=== PATIENT | female | born 1960 | race Hispanic/Latino ===

== ENCOUNTER 2017-03-15 04:34 | Emergency (ER) | payer MEDICAID, OTHER ==
[~2017-03-15 04:34] MED LIST: ASPI-1197 PO; CITA10TA13 PO; GLIM4TAB3 PO; IBUP-2353 PO; LISI2.5T2 PO; METF10004 PO
[2017-03-15] MEDS ORDERED: PROCHLORPERAZINE EDISYLATE 10 MG/2 ML VIAL ONE (05:07)
[2017-03-15] MEDS ORDERED: SODIUM CHLORIDE 0.9% 250 ML IV ONE (05:07)
[2017-03-15 05:22] LABS: CARBON DIOXIDE 30 mmol/L (21-32); CHLORIDE 101 mmol/L (101-111); CREATININE 0.8 mg/dL (0.5-1.5); GLOMERULAR FILTR. RATE CALC 79 mL/min (>60); GLUCOSE,RANDOM 280 mg/dL (70-105); POTASSIUM 4.3 mmol/L (3.5-5.1); SODIUM SERUM 137 mmol/L (136-145); UREA NITROGEN, BLOOD 15 mg/dL (7-18)
[2017-03-15 05:24] LABS: BASOPHILS % (AUTO) 1.4 % (0.0-5.0); EOSINOPHILS % (AUTO) 5.5 % (0.0-8.0); HEMATOCRIT 36.5 % (36-48); LYMPHOCYTES % (AUTO) 35.2 % (21.0-51.0); MEAN CORPUSCULAR HEMOGLOBIN 27.8 pg (27.0-33.0); MEAN CORPUSCULAR HGB CONC 33.8 g/dL (32.0-36.0); MEAN CORPUSCULAR VOLUME 82.2 fL (79-99); MONOCYTES % (AUTO) 7.6 % (3.0-13.0); NEUTROPHILS % (AUTO) 50.3 % (40.0-77.0); PLATELET COUNT (AUTO) 317 K/uL (130-400); RED BLOOD CELL COUNT(AUTO) 4.44 MIL/uL (4.00-5.50); RED CELL DISTRIBUTION WIDTH 13.3 % (11.0-15.5); WHITE BLOOD COUNT (AUTO) 9.4 K/uL (4.8-10.8)
[2017-03-15 05:26] LABS: ALANINE AMINOTRANSFERASE 36 U/L (12-78); ASPARTATE AMINOTRANSFERASE 34 U/L (10-37); BILIRUBIN,DIRECT < 0.1 mg/dL (0.0-0.3); BILIRUBIN,TOTAL 0.6 mg/dL (0.2-1.0); CREATINE KINASE, TOTAL 148 U/L (21-232); LIPASE 167 U/L (114-286); TOTAL PROTEIN, SERUM 7.4 g/dL (6.0-8.3)
[2017-03-15 05:38] LABS: B-TYPE NATRIURETIC PEPTIDE 87 pg/mL (0-100)
[2017-03-15] MEDS ORDERED: KETOROLAC TROMETHAMINE 30MG/ML ONE (05:55)
[2017-03-15 06:06] LABS: APPEARANCE,URINE Cloudy (CLEAR); BILIRUBIN,URINE Negative (NEGATIVE); COLOR,URINE Yellow (YELLOW); GLUCOSE, URINE (UA) >=1000 mg/dL (NEGATIVE); KETONES,URINE Negative (NEGATIVE); LEUKOCYTE ESTERASE ,URINE Small (NEGATIVE); NITRATE,URINE Positive (NEGATIVE); OCCULT BLOOD,URINE Negative (NEGATIVE); PROTEIN,URINE POS 2+ (NEGATIVE)
[2017-03-15 06:12] LABS: BACTERIA,URINE Many /HPF (None Seen); MUCUS,URINE Many LPF (None Seen); RBC,URINE 0-1 /HPF (0-1); SQUAMOUS EPITHELIAL CELL,UR Moderate /LPF (0-2); WBC,URINE 26-50 /HPF (0-1)
== END 2017-03-15 08:39 | disposition home or self-care (01) ==
LOC: EDH 04:34
DX: R10.13 Epigastric pain (principal); R11.10 Vomiting, unspecified; I25.10 Atherosclerotic heart disease of native coronary artery without angina pectoris; E11.9 Type 2 diabetes mellitus without complications; E78.5 Hyperlipidemia, unspecified; I10 Essential (primary) hypertension; Z95.1 Presence of aortocoronary bypass graft; Z88.6 Allergy status to analgesic agent
CPT/HCPCS: 36415; 71045; 74176; 80048; 80076; 81001; 82550; 83690; 83880; 84484 ×2; 85025; 93005; 96361; 96374; 96375; 99285; J0780; J1885; J7030

== ENCOUNTER 2017-08-28 06:41 | Emergency (ER) | payer MEDICAID ==
[2017-08-28 07:03] LABS: APPEARANCE,URINE Clear (CLEAR); BILIRUBIN,URINE Negative (NEGATIVE); COLOR,URINE Yellow (YELLOW); GLUCOSE, URINE (UA) >=1000 mg/dL (NEGATIVE); KETONES,URINE Negative (NEGATIVE); LEUKOCYTE ESTERASE ,URINE Negative (NEGATIVE); NITRATE,URINE Positive (NEGATIVE); OCCULT BLOOD,URINE Negative (NEGATIVE); PROTEIN,URINE POS 2+ (NEGATIVE)
[2017-08-28] MEDS ORDERED: PROMETHAZINE HCL 25 MG/ML 1ML AMPULE IM ONE (07:21)
[2017-08-28 07:35] LABS: RBC,URINE 0-1 /HPF (0-1)
[2017-08-28 07:36] LABS: BACTERIA,URINE Moderate /HPF (None Seen); SQUAMOUS EPITHELIAL CELL,UR Few /HPF (0-2)
[2017-08-28 08:14] LABS: CREATININE 0.8 mg/dL (0.5-1.5); POTASSIUM 4.2 mmol/L (3.5-5.1)
[2017-08-28 08:23] LABS: ALBUMIN 3.4 g/dL (3.5-5.0); BASOPHILS % (AUTO) 0.6 % (0.0-5.0); BILIRUBIN,TOTAL 0.7 mg/dL (0.2-1.0); EOSINOPHILS % (AUTO) 3.9 % (0.0-8.0); HEMATOCRIT 38.9 % (36-48); LYMPHOCYTES % (AUTO) 28.5 % (21.0-51.0); MEAN CORPUSCULAR HEMOGLOBIN 27.8 pg (27.0-33.0); MEAN CORPUSCULAR HGB CONC 33.6 g/dL (32.0-36.0); MEAN CORPUSCULAR VOLUME 82.8 fL (79-99); MONOCYTES % (AUTO) 6.5 % (3.0-13.0); NEUTROPHILS % (AUTO) 60.5 % (40.0-77.0); PLATELET COUNT (AUTO) 266 K/uL (130-400); TOTAL PROTEIN, SERUM 7.6 g/dL (6.0-8.3); WHITE BLOOD COUNT (AUTO) 11.9 K/uL (4.8-10.8)
== END 2017-08-28 09:01 | disposition home or self-care (01) ==
LOC: EDH 06:41
DX: A09 Infectious gastroenteritis and colitis, unspecified (principal); E11.65 Type 2 diabetes mellitus with hyperglycemia; G47.00 Insomnia, unspecified; I25.10 Atherosclerotic heart disease of native coronary artery without angina pectoris; E78.5 Hyperlipidemia, unspecified; I10 Essential (primary) hypertension; Z95.1 Presence of aortocoronary bypass graft; Z90.49 Acquired absence of other specified parts of digestive tract; Z88.8 Allergy status to other drugs, medicaments and biological substances
CPT/HCPCS: 36415; 80053; 81001; 83690; 85025; 87088; 87186; 93005; 96372; 99285; J2550

== ENCOUNTER 2018-10-28 23:12 | Inpatient (IN) | payer MEDICAID | END 2018-10-31 12:18 | disposition home or self-care (01) | LOC: EDH 23:12 → EDHIP 23:13 → 4BH 10-29 05:38 | DX: I21.A1 Myocardial infarction type 2 (principal); J45.901 Unspecified asthma with (acute) exacerbation; Z95.1 Presence of aortocoronary bypass graft; J20.9 Acute bronchitis, unspecified; I10 Essential (primary) hypertension; E78.5 Hyperlipidemia, unspecified; R79.89 Other specified abnormal findings of blood chemistry; E04.1 Nontoxic single thyroid nodule ==

== ENCOUNTER 2020-09-08 18:53 | Emergency (ER) | payer MEDICAID ==
[~2020-09-08] VITALS: Ht 152.4 cm; Wt 104.3 kg
[~2020-09-08 18:53] MED LIST changes: +ASPI-1005 PO; -ASPI-1197 PO; +ATOR40TA69 PO; -CITA10TA13 PO; +CITA20TA17 PO; -GLIM4TAB3 PO; -IBUP-2353 PO; -LISI2.5T2 PO; +METF-446 PO; -METF10004 PO
[2020-09-08] MEDS ORDERED: HYDR-3421 PO (20:47)
[2020-09-08 20:50] VITALS: BP 157/72
[2020-09-08] MEDS ORDERED: HYDROXYZINE 25 MG TABLET PO ONE ×2 (21:00)
[2020-09-08] MEDS ORDERED: IBUPROFEN 600 MG TABLET PO ONE (21:00)
== END 2020-09-08 21:06 | disposition home or self-care (01) ==
LOC: EDH 18:53
DX: F41.9 Anxiety disorder, unspecified (principal); I10 Essential (primary) hypertension; M19.90 Unspecified osteoarthritis, unspecified site; Z76.0 Encounter for issue of repeat prescription; Z79.84 Long term (current) use of oral hypoglycemic drugs; Z79.82 Long term (current) use of aspirin; Z79.899 Other long term (current) drug therapy; Z88.6 Allergy status to analgesic agent

== ENCOUNTER 2021-08-29 09:53 | Inpatient (IN) | payer MEDICAID ==
[~2021-08-29] VITALS: Ht 157.5 cm; Wt 106.0 kg
[~2021-08-29 09:53] MED LIST changes: +HYDR-3421 PO
[2021-08-29 10:15] LABS: BASOPHILS % (AUTO) 0.4 % (0.0-5.0); EOSINOPHILS % (AUTO) 5.1 % (0.0-8.0); LYMPHOCYTES % (AUTO) 18.8 % (21.0-51.0); MEAN CORPUSCULAR HEMOGLOBIN 26.6 pg (27.0-33.0); MEAN CORPUSCULAR HGB CONC 31.5 g/dL (32.0-36.0); MEAN CORPUSCULAR VOLUME 84.6 fL (79-99); MONOCYTES % (AUTO) 11.9 % (3.0-13.0); NEUTROPHILS % (AUTO) 63.7 % (40.0-77.0); PLATELET COUNT (AUTO) 187 K/uL (130-400); RED BLOOD CELL COUNT(AUTO) 4.02 MIL/uL (4.00-5.50); RED CELL DISTRIBUTION WIDTH 15.4 % (11.0-15.5); WHITE BLOOD COUNT (AUTO) 7.4 K/uL (4.8-10.8)
[2021-08-29 10:30] LABS: POTASSIUM 3.8 mmol/L (3.5-5.1)
[2021-08-29] MEDS ORDERED: SOLU-MEDROL 125MG VIAL IVP ONE (10:30)
[2021-08-29] MEDS ORDERED: IPRATROPIUM/ALBUTEROL SULFATE 3 ML SOLUTION IH ONE (10:30)
[2021-08-29 10:35] LABS: ALBUMIN 2.9 g/dL (3.5-5.0); BILIRUBIN,TOTAL 0.6 mg/dL (0.2-1.0); TOTAL PROTEIN, SERUM 7.4 g/dL (6.0-8.3)
[2021-08-29 10:52] LABS: B-TYPE NATRIURETIC PEPTIDE 520 pg/mL (0-100)
[2021-08-29 10:58] LABS: APPEARANCE,URINE CLEAR (CLEAR); BILIRUBIN,URINE NEGATIVE (NEGATIVE); COLOR,URINE YELLOW (YELLOW); GLUCOSE, URINE (UA) NEGATIVE (NEGATIVE); KETONES,URINE NEGATIVE (NEGATIVE); LEUKOCYTE ESTERASE ,URINE NEGATIVE (NEGATIVE); NITRATE,URINE NEGATIVE (NEGATIVE); OCCULT BLOOD,URINE NEGATIVE (NEGATIVE); PH,URINE 5.5 (5.0-8.0); PROTEIN,URINE TRACE mg/dL (NEGATIVE)
[2021-08-29 11:02] LABS: BACTERIA,URINE Rare /HPF (None Seen); RBC,URINE 0-1 /HPF (0-1); SQUAMOUS EPITHELIAL CELL,UR Rare /HPF (0-2); WBC,URINE 0-1 /HPF (0-1)
[2021-08-29] MEDS ORDERED: FUROSEMIDE 20MG VIAL IV ONE (11:30)
[2021-08-29] MEDS ORDERED: ENOXAPARIN SODIUM 0.5 MG/KG EACH SQ SCH (12:00)
[2021-08-29] MEDS ORDERED: ONDANSETRON 4MG INJ IV PRN (12:00)
[2021-08-29] MEDS ORDERED: ACETAMINOPHEN 325 MG TAB PO PRN ×2 (12:00)
[2021-08-29] MEDS: NITROGLYCERIN 1GM OINT 1 INCH/1GM TD SCH ×2 (12:26→20:35)
[2021-08-29] MEDS: DOXYCYCLINE 100MG+NS 250ML 250 ML IV SCH (12:26)
[2021-08-29] MEDS: CEFTRIAXONE 1G VIAL IV SCH (12:26)
[2021-08-29] MEDS ORDERED: ENOXAPARIN SODIUM 60 MG/0.6 ML SQ SCH (12:30)
[2021-08-29] MEDS ORDERED: INSULIN HUMULIN R 100 UNIT/ML 3ML SQ SCH (16:30)
[2021-08-29] MEDS ORDERED: ASPIRIN 325MG TAB PO ONE (19:00)
[2021-08-29] MEDS ORDERED: CLOPIDOGREL 300MG TAB PO ONE (19:00)
[2021-08-29] MEDS ORDERED: METO-408 PO (20:05)
[2021-08-29] MEDS ORDERED: METF-446 PO (20:05)
[2021-08-29] MEDS ORDERED: CITA-106 PO (20:06)
[2021-08-29] MEDS ORDERED: SPIR25TA6 PO (20:07)
[2021-08-29] MEDS ORDERED: GLIM4TAB36 PO (20:08)
[2021-08-29] MEDS ORDERED: ASPI-1197 PO (20:08)
[2021-08-29] MEDS ORDERED: SITA100T12 PO (20:09)
[2021-08-29] MEDS ORDERED: LEVO500T90 PO (20:09)
[2021-08-29] MEDS ORDERED: ATOR-2 PO (20:10)
[2021-08-29] MEDS ORDERED: FURO40TA5 PO (20:11)
[2021-08-29] MEDS ORDERED: LOSA25TA41 PO (20:11)
[2021-08-29] MEDS ORDERED: ASPIRIN 325MG TAB ONE (20:26)
[2021-08-29] MEDS ORDERED: CLOPIDOGREL 300MG TAB ONE (20:26)
[2021-08-29] MEDS: FUROSEMIDE 40MG VIAL IVP SCH (20:35)
[2021-08-29] MEDS: CARVEDILOL 3.125 MG TABLET PO SCH (20:48)
[2021-08-29] MEDS: SOLU-MEDROL 40MG VIAL IVP SCH (20:48)
[2021-08-29] MEDS: INSULIN HUMULIN R 100 UNIT/ML 3ML SQ SCH (20:49)
[2021-08-29] MEDS ORDERED: INSULIN GLARGINE 100 UNITS/ML 10 ML VIAL SQ SCH (21:00)
[2021-08-29] MEDS: IPRATROPIUM/ALBUTEROL SULFATE 3 ML SOLUTION IH SCH (23:48)
[2021-08-30] MEDS: DOXYCYCLINE 100MG+NS 250ML 250 ML IV SCH ×3 (00:37→23:35)
[2021-08-30] MEDS: SOLU-MEDROL 40MG VIAL IVP SCH ×3 (04:45→20:49)
[2021-08-30] MEDS: NITROGLYCERIN 1GM OINT 1 INCH/1GM TD SCH ×3 (04:45→20:48)
[2021-08-30 06:18] LABS: BASOPHILS % (AUTO) 0.3 % (0.0-5.0); HEMATOCRIT 30.1 % (36-48); LYMPHOCYTES % (AUTO) 12.1 % (21.0-51.0); MEAN CORPUSCULAR HEMOGLOBIN 26.4 pg (27.0-33.0); MEAN CORPUSCULAR HGB CONC 32.2 g/dL (32.0-36.0); MONOCYTES % (AUTO) 5.4 % (3.0-13.0); NEUTROPHILS % (AUTO) 81.7 % (40.0-77.0); PLATELET COUNT (AUTO) 169 K/uL (130-400); RED BLOOD CELL COUNT(AUTO) 3.67 MIL/uL (4.00-5.50)
[2021-08-30] MEDS: IPRATROPIUM/ALBUTEROL SULFATE 3 ML SOLUTION IH SCH ×4 (06:20→23:41)
[2021-08-30 06:27] LABS: HEMOGLOBIN A1C 8.4 % (4.0-6.0)
[2021-08-30 06:53] LABS: % IRON SATURATION 29.8 % (22-44)
[2021-08-30 06:56] LABS: CREATININE 1.1 mg/dL (0.5-1.5); POTASSIUM 3.8 mmol/L (3.5-5.1); THYROID STIMULATING HORMONE 0.3 uIU/mL (0.36-3.74)
[2021-08-30] MEDS ORDERED: INSULIN HUMULIN R 100 UNIT/ML 3ML SQ SCH (07:30)
[2021-08-30] MEDS: INSULIN HUMULIN R 100 UNIT/ML 3ML SQ SCH ×6 (09:00→20:50)
[2021-08-30] MEDS: FOLIC ACID 5 MG/ML VIAL IV SCH (09:54)
[2021-08-30] MEDS: FUROSEMIDE 40MG VIAL IVP SCH ×2 (09:54→20:49)
[2021-08-30] MEDS: IRON SUCROSE COMPLEX 300 MG in 0.9% NACL 250ML 250 ML IV SCH (09:54)
[2021-08-30] MEDS: INSULIN GLARGINE 100 UNITS/ML 10 ML VIAL SQ SCH ×2 (09:55→20:51)
[2021-08-30] MEDS: CARVEDILOL 3.125 MG TABLET PO SCH ×2 (09:55→20:50)
[2021-08-30] MEDS: ASPIRIN 81MG CHEW TAB PO SCH (09:55)
[2021-08-30] MEDS: ENOXAPARIN SODIUM 40 MG/0.4 ML SYRINGE SQ SCH (09:55)
[2021-08-30] MEDS: CLOPIDOGREL 75MG TAB PO SCH (09:55)
[2021-08-30 12:00] VITALS: BP 155/55
[2021-08-30] MEDS: CEFTRIAXONE 1G VIAL IV SCH (13:35)
[2021-08-30] MEDS ORDERED: COMPOUND IV MISC 1 EACH IVSOLN MISC PRN (14:00)
[2021-08-30 16:00] VITALS: BP 142/70
[2021-08-30 20:45] VITALS: BP 140/108
[2021-08-30 23:47] VITALS: BP 161/63
[2021-08-31 03:22] LABS: BASOPHILS % (AUTO) 0.2 % (0.0-5.0); HEMATOCRIT 30.2 % (36-48); LYMPHOCYTES % (AUTO) 8.8 % (21.0-51.0); MEAN CORPUSCULAR HGB CONC 32.8 g/dL (32.0-36.0); MEAN CORPUSCULAR VOLUME 82.5 fL (79-99); MONOCYTES % (AUTO) 5.5 % (3.0-13.0); NEUTROPHILS % (AUTO) 84.4 % (40.0-77.0); PLATELET COUNT (AUTO) 226 K/uL (130-400); RED BLOOD CELL COUNT(AUTO) 3.66 MIL/uL (4.00-5.50); RED CELL DISTRIBUTION WIDTH 14.9 % (11.0-15.5)
[2021-08-31 03:50] LABS: POTASSIUM 4.1 mmol/L (3.5-5.1)
[2021-08-31 04:00] VITALS: BP 146/61
[2021-08-31] MEDS: NITROGLYCERIN 1GM OINT 1 INCH/1GM TD SCH (04:29)
[2021-08-31 04:34] LABS: B-TYPE NATRIURETIC PEPTIDE 384 pg/mL (0-100)
[2021-08-31 08:00] VITALS: BP 152/87
[2021-08-31] MEDS: SOLU-MEDROL 40MG VIAL IVP SCH ×3 (08:06→20:55)
[2021-08-31] MEDS: CLOPIDOGREL 75MG TAB PO SCH (08:07)
[2021-08-31] MEDS: ASPIRIN 81MG CHEW TAB PO SCH (08:07)
[2021-08-31] MEDS: CARVEDILOL 3.125 MG TABLET PO SCH (08:08)
[2021-08-31] MEDS: FUROSEMIDE 40MG VIAL IVP SCH (08:09)
[2021-08-31] MEDS: ENOXAPARIN SODIUM 40 MG/0.4 ML SYRINGE SQ SCH (08:09)
[2021-08-31] MEDS: INSULIN GLARGINE 100 UNITS/ML 10 ML VIAL SQ SCH ×2 (08:16→20:49)
[2021-08-31] MEDS: INSULIN HUMULIN R 100 UNIT/ML 3ML SQ SCH ×7 (08:16→20:53)
[2021-08-31] MEDS: CYANOCOBALAMIN (VITAMIN B-12) 1000 MCG/ML 1ML VIAL IM SCH (08:57)
[2021-08-31] MEDS: FOLIC ACID 5 MG/ML VIAL IV SCH (08:57)
[2021-08-31] MEDS: IRON SUCROSE COMPLEX 300 MG in 0.9% NACL 250ML 250 ML IV SCH (09:09)
[2021-08-31] MEDS ORDERED: ACETAZOLAMIDE SODIUM 500 MG VIAL IV SCH ×2 (10:30→21:00)
[2021-08-31] MEDS ORDERED: NIFEDIPINE ER 30 MG TAB PO SCH (10:30)
[2021-08-31] MEDS ORDERED: COMPOUND IV REFRIGERATED 1 EACH IVSOLN MISC PRN (11:00)
[2021-08-31] MEDS ORDERED: [UNRECOGNIZED DRUG - OTHER] IV SCH (11:00)
[2021-08-31] MEDS ORDERED: ACETAZOLAMIDE IV SCH (11:00)
[2021-08-31] MEDS: IPRATROPIUM/ALBUTEROL SULFATE 3 ML SOLUTION IH SCH ×3 (11:19→23:38)
[2021-08-31 11:40] VITALS: BP 152/60
[2021-08-31] MEDS: DOXYCYCLINE 100MG+NS 250ML 250 ML IV SCH ×2 (11:44→23:56)
[2021-08-31] MEDS: CEFTRIAXONE 1G VIAL IV SCH (11:54)
[2021-08-31 14:12] LABS: ABG BASE EXCESS 4.2 mmol/L (-2.0-3.0); ABG HCO3 30.3 mmol/L (21.0-28.0); ABG OXYGEN SATURATION 90.7 % (95.0-99.0); ABG PCO2 51 mmHg (32-45)
[2021-08-31 16:00] VITALS: BP 155/80
[2021-08-31 20:10] VITALS: BP 164/69
[2021-08-31] MEDS: CARVEDILOL 6.25 MG TABLET PO SCH (20:46)
[2021-08-31] MEDS: CITALOPRAM 20 MG TABLET PO SCH (20:46)
[2021-08-31] MEDS: FUROSEMIDE 20MG VIAL IV SCH (20:47)
[2021-08-31] MEDS: [UNRECOGNIZED DRUG - OTHER] IV SCH (20:55)
[2021-08-31] MEDS: ACETAZOLAMIDE IV SCH (20:55)
[2021-09-01] VITALS: BP 141/86
[2021-09-01 04:00] VITALS: BP 144/87
[2021-09-01 04:10] LABS: BASOPHILS % (AUTO) 0.3 % (0.0-5.0); HEMATOCRIT 35.2 % (36-48); LYMPHOCYTES % (AUTO) 9.6 % (21.0-51.0); MEAN CORPUSCULAR HEMOGLOBIN 26.3 pg (27.0-33.0); MEAN CORPUSCULAR HGB CONC 31.3 g/dL (32.0-36.0); MEAN CORPUSCULAR VOLUME 84.2 fL (79-99); MONOCYTES % (AUTO) 3.8 % (3.0-13.0); NEUTROPHILS % (AUTO) 84.9 % (40.0-77.0); NUCLEATED RED BLOOD CELLS 0.1 % (0.0-0.19); PLATELET COUNT (AUTO) 295 K/uL (130-400); RED BLOOD CELL COUNT(AUTO) 4.18 MIL/uL (4.00-5.50); RED CELL DISTRIBUTION WIDTH 15.3 % (11.0-15.5); WHITE BLOOD COUNT (AUTO) 17.6 K/uL (4.8-10.8)
[2021-09-01 04:24] LABS: CREATININE 0.9 mg/dL (0.5-1.5); POTASSIUM 4.2 mmol/L (3.5-5.1)
[2021-09-01 05:25] LABS: B-TYPE NATRIURETIC PEPTIDE 458 pg/mL (0-100)
[2021-09-01] MEDS: IPRATROPIUM/ALBUTEROL SULFATE 3 ML SOLUTION IH SCH ×2 (07:06→11:56)
[2021-09-01 08:00] VITALS: BP 164/78
[2021-09-01] MEDS: INSULIN HUMULIN R 100 UNIT/ML 3ML SQ SCH ×7 (08:01→21:39)
[2021-09-01] MEDS: INSULIN GLARGINE 100 UNITS/ML 10 ML VIAL SQ SCH ×2 (08:03→21:38)
[2021-09-01] MEDS ORDERED: LOSARTAN 25 MG TABLET PO SCH (09:00)
[2021-09-01] MEDS: FUROSEMIDE 20MG VIAL IV SCH ×2 (10:09→20:32)
[2021-09-01] MEDS: SOLU-MEDROL 40MG VIAL IVP SCH ×3 (10:10→20:33)
[2021-09-01] MEDS: ENOXAPARIN SODIUM 40 MG/0.4 ML SYRINGE SQ SCH (10:12)
[2021-09-01] MEDS: ASPIRIN 81MG CHEW TAB PO SCH (10:13)
[2021-09-01] MEDS: CLOPIDOGREL 75MG TAB PO SCH (10:13)
[2021-09-01] MEDS: CARVEDILOL 6.25 MG TABLET PO SCH ×2 (10:18→20:32)
[2021-09-01] MEDS: NIFEDIPINE ER 30 MG TAB PO SCH (10:19)
[2021-09-01] MEDS: ATORVASTATIN 40 MG TABLET PO SCH (10:20)
[2021-09-01] MEDS: SPIRONOLACTONE 25 MG TAB PO SCH (10:20)
[2021-09-01] MEDS: CYANOCOBALAMIN (VITAMIN B-12) 1000 MCG/ML 1ML VIAL IM SCH (10:35)
[2021-09-01] MEDS: IRON SUCROSE COMPLEX 300 MG in 0.9% NACL 250ML 250 ML IV SCH (10:36)
[2021-09-01] MEDS: ACETAZOLAMIDE IV SCH ×2 (10:36→21:00)
[2021-09-01] MEDS: FOLIC ACID 5 MG/ML VIAL IV SCH (10:36)
[2021-09-01] MEDS: [UNRECOGNIZED DRUG - OTHER] IV SCH ×2 (10:36→21:00)
[2021-09-01 12:00] VITALS: BP 142/71
[2021-09-01] MEDS: CEFTRIAXONE 1G VIAL IV SCH (14:14)
[2021-09-01] MEDS: DOXYCYCLINE 100MG+NS 250ML 250 ML IV SCH (15:17)
[2021-09-01 16:00] VITALS: BP 131/53
[2021-09-01] MEDS: LOSARTAN 25 MG TABLET PO SCH (16:53)
[2021-09-01] MEDS ORDERED: SODIUM CHLORIDE 3% FOR INHALATION 4 ML/AMP VIAL.NEB IH SCH (18:00)
[2021-09-01] MEDS ORDERED: SODIUM CHLORIDE 7% INHALATION 4 ML VIAL.NEB IH ONE ×2 (19:03→23:16)
[2021-09-01 20:00] VITALS: BP 138/50
[2021-09-01] MEDS: CITALOPRAM 20 MG TABLET PO SCH (20:32)
[2021-09-02] VITALS: BP 130/54
[2021-09-02] MEDS: DOXYCYCLINE 100MG+NS 250ML 250 ML IV SCH ×2 (00:35→11:06)
[2021-09-02 04:00] VITALS: BP 146/72
[2021-09-02 05:29] LABS: BASOPHILS % (AUTO) 0.2 % (0.0-5.0); HEMATOCRIT 36.9 % (36-48); LYMPHOCYTES % (AUTO) 10.7 % (21.0-51.0); MEAN CORPUSCULAR HGB CONC 32.2 g/dL (32.0-36.0); MEAN CORPUSCULAR VOLUME 83.9 fL (79-99); MONOCYTES % (AUTO) 5.5 % (3.0-13.0); NUCLEATED RED BLOOD CELLS 0.2 % (0.0-0.19); PLATELET COUNT (AUTO) 348 K/uL (130-400); RED CELL DISTRIBUTION WIDTH 15.1 % (11.0-15.5); WHITE BLOOD COUNT (AUTO) 21.2 K/uL (4.8-10.8)
[2021-09-02 05:53] LABS: CREATININE 0.9 mg/dL (0.5-1.5); MAGNESIUM 1.9 mg/dL (1.80-2.40); PHOSPHORUS 3.5 mg/dL (2.5-4.9)
[2021-09-02] MEDS: INSULIN HUMULIN R 100 UNIT/ML 3ML SQ SCH ×7 (06:40→20:17)
[2021-09-02 08:00] VITALS: BP 151/93
[2021-09-02] MEDS ORDERED: LACTULOSE 20 GM/30 ML UDCUP ONE (08:40)
[2021-09-02] MEDS: ACETAZOLAMIDE IV SCH ×2 (10:09→20:13)
[2021-09-02] MEDS: CYANOCOBALAMIN (VITAMIN B-12) 1000 MCG/ML 1ML VIAL IM SCH (10:09)
[2021-09-02] MEDS: [UNRECOGNIZED DRUG - OTHER] IV SCH ×2 (10:09→20:13)
[2021-09-02] MEDS: ENOXAPARIN SODIUM 40 MG/0.4 ML SYRINGE SQ SCH (10:10)
[2021-09-02] MEDS: LOSARTAN 25 MG TABLET PO SCH (10:10)
[2021-09-02] MEDS: ASPIRIN 81MG CHEW TAB PO SCH (10:10)
[2021-09-02] MEDS: ATORVASTATIN 40 MG TABLET PO SCH (10:11)
[2021-09-02] MEDS: SPIRONOLACTONE 25 MG TAB PO SCH (10:12)
[2021-09-02] MEDS: NIFEDIPINE ER 30 MG TAB PO SCH (10:12)
[2021-09-02] MEDS: CARVEDILOL 6.25 MG TABLET PO SCH ×2 (10:12→20:15)
[2021-09-02] MEDS: FUROSEMIDE 20MG VIAL IV SCH ×2 (10:12→20:15)
[2021-09-02] MEDS: SOLU-MEDROL 40MG VIAL IVP SCH ×3 (10:12→20:15)
[2021-09-02] MEDS: LACTULOSE 20 GM/30 ML UDCUP PO SCH ×2 (10:14→20:14)
[2021-09-02] MEDS: FOLIC ACID 1 MG TABLET PO SCH (10:17)
[2021-09-02] MEDS: IRON SUCROSE COMPLEX 300 MG in 0.9% NACL 250ML 250 ML IV SCH (10:17)
[2021-09-02] MEDS: INSULIN GLARGINE 100 UNITS/ML 10 ML VIAL SQ SCH ×2 (10:18→20:16)
[2021-09-02] MEDS: CEFTRIAXONE 1G VIAL IV SCH (11:23)
[2021-09-02 12:00] VITALS: BP 149/56
[2021-09-02] MEDS: SODIUM CHLORIDE 3% IH SCH (18:55)
[2021-09-02 20:00] VITALS: BP 142/52
[2021-09-02] MEDS: HYDROXYZINE 10 MG TABLET PO PRN (20:14)
[2021-09-02] MEDS: CITALOPRAM 20 MG TABLET PO SCH (20:15)
[2021-09-03] VITALS: BP 144/51
[2021-09-03] MEDS: DOXYCYCLINE 100MG+NS 250ML 250 ML IV SCH ×2 (00:06→13:07)
[2021-09-03] MEDS: SODIUM CHLORIDE 3% IH SCH ×5 (00:11→23:49)
[2021-09-03 04:00] VITALS: BP 136/62
[2021-09-03 05:19] LABS: BASOPHILS % (AUTO) 0.3 % (0.0-5.0); HEMATOCRIT 35.3 % (36-48); LYMPHOCYTES % (AUTO) 10.5 % (21.0-51.0); MEAN CORPUSCULAR HEMOGLOBIN 26.7 pg (27.0-33.0); MEAN CORPUSCULAR HGB CONC 32.3 g/dL (32.0-36.0); MEAN CORPUSCULAR VOLUME 82.7 fL (79-99); MONOCYTES % (AUTO) 4.3 % (3.0-13.0); NEUTROPHILS % (AUTO) 82.6 % (40.0-77.0); NUCLEATED RED BLOOD CELLS 0.3 % (0.0-0.19); PLATELET COUNT (AUTO) 393 K/uL (130-400); RED BLOOD CELL COUNT(AUTO) 4.27 MIL/uL (4.00-5.50)
[2021-09-03 05:39] LABS: CREATININE 0.9 mg/dL (0.5-1.5)
[2021-09-03] MEDS: INSULIN HUMULIN R 100 UNIT/ML 3ML SQ SCH ×8 (07:30→20:34)
[2021-09-03 08:00] VITALS: BP 149/73
[2021-09-03] MEDS: ASPIRIN 81MG CHEW TAB PO SCH (09:58)
[2021-09-03] MEDS: NIFEDIPINE ER 30 MG TAB PO SCH (09:58)
[2021-09-03] MEDS: LOSARTAN 25 MG TABLET PO SCH (09:59)
[2021-09-03] MEDS: SPIRONOLACTONE 25 MG TAB PO SCH (09:59)
[2021-09-03] MEDS: FOLIC ACID 1 MG TABLET PO SCH (09:59)
[2021-09-03] MEDS: ATORVASTATIN 40 MG TABLET PO SCH (09:59)
[2021-09-03] MEDS: LACTULOSE 20 GM/30 ML UDCUP PO SCH ×2 (10:00→20:24)
[2021-09-03] MEDS: CARVEDILOL 6.25 MG TABLET PO SCH ×2 (10:00→20:23)
[2021-09-03] MEDS: FUROSEMIDE 20MG VIAL IV SCH ×2 (10:00→20:24)
[2021-09-03] MEDS: SOLU-MEDROL 40MG VIAL IVP SCH ×3 (10:00→20:28)
[2021-09-03] MEDS: CYANOCOBALAMIN (VITAMIN B-12) 1000 MCG/ML 1ML VIAL IM SCH (10:01)
[2021-09-03] MEDS: ENOXAPARIN SODIUM 40 MG/0.4 ML SYRINGE SQ SCH (10:02)
[2021-09-03] MEDS: IRON SUCROSE COMPLEX 300 MG in 0.9% NACL 250ML 250 ML IV SCH (10:18)
[2021-09-03] MEDS: INSULIN GLARGINE 100 UNITS/ML 10 ML VIAL SQ SCH ×2 (10:32→20:33)
[2021-09-03 11:21] VITALS: BP 125/55
[2021-09-03] MEDS: ACETAZOLAMIDE IV SCH ×2 (13:05→20:37)
[2021-09-03] MEDS: [UNRECOGNIZED DRUG - OTHER] IV SCH ×2 (13:05→20:37)
[2021-09-03] MEDS: CEFTRIAXONE 1G VIAL IV SCH (13:07)
[2021-09-03 16:00] VITALS: BP 118/57
[2021-09-03 20:00] VITALS: BP 139/62
[2021-09-03] MEDS: CITALOPRAM 20 MG TABLET PO SCH (20:21)
[2021-09-04] VITALS: BP 130/59
[2021-09-04] MEDS: DOXYCYCLINE 100MG+NS 250ML 250 ML IV SCH ×3 (00:40→23:25)
[2021-09-04 04:00] VITALS: BP_SYST 126; BP_SYST 149; BP_DIAS 52; BP_DIAS 84
[2021-09-04 05:31] LABS: BASOPHILS % (AUTO) 0.2 % (0.0-5.0); HEMATOCRIT 37.3 % (36-48); LYMPHOCYTES % (AUTO) 9.4 % (21.0-51.0); MEAN CORPUSCULAR HEMOGLOBIN 26.5 pg (27.0-33.0); MEAN CORPUSCULAR HGB CONC 31.9 g/dL (32.0-36.0); MEAN CORPUSCULAR VOLUME 83.1 fL (79-99); MONOCYTES % (AUTO) 4.6 % (3.0-13.0); NEUTROPHILS % (AUTO) 83.1 % (40.0-77.0); NUCLEATED RED BLOOD CELLS 0.1 % (0.0-0.19); PLATELET COUNT (AUTO) 395 K/uL (130-400); RED BLOOD CELL COUNT(AUTO) 4.49 MIL/uL (4.00-5.50); RED CELL DISTRIBUTION WIDTH 15.2 % (11.0-15.5); WHITE BLOOD COUNT (AUTO) 27.1 K/uL (4.8-10.8)
[2021-09-04 05:50] LABS: CREATININE 0.9 mg/dL (0.5-1.5); POTASSIUM 3.8 mmol/L (3.5-5.1)
[2021-09-04] MEDS: INSULIN HUMULIN R 100 UNIT/ML 3ML SQ SCH ×7 (06:51→21:30)
[2021-09-04] MEDS: SODIUM CHLORIDE 3% IH SCH ×2 (07:06→19:58)
[2021-09-04] MEDS: ACETAZOLAMIDE IV SCH ×2 (09:00→21:00)
[2021-09-04] MEDS: [UNRECOGNIZED DRUG - OTHER] IV SCH ×2 (09:00→21:00)
[2021-09-04] MEDS: ASPIRIN 81MG CHEW TAB PO SCH (09:06)
[2021-09-04] MEDS: LACTULOSE 20 GM/30 ML UDCUP PO SCH ×2 (09:06→20:54)
[2021-09-04] MEDS: FUROSEMIDE 20MG VIAL IV SCH ×2 (09:07→20:54)
[2021-09-04] MEDS: ATORVASTATIN 40 MG TABLET PO SCH (09:07)
[2021-09-04] MEDS: FOLIC ACID 1 MG TABLET PO SCH (09:07)
[2021-09-04] MEDS: CARVEDILOL 6.25 MG TABLET PO SCH ×2 (09:08→20:52)
[2021-09-04] MEDS: INSULIN GLARGINE 100 UNITS/ML 10 ML VIAL SQ SCH ×2 (09:09→20:56)
[2021-09-04] MEDS: ENOXAPARIN SODIUM 40 MG/0.4 ML SYRINGE SQ SCH (09:10)
[2021-09-04] MEDS: SPIRONOLACTONE 25 MG TAB PO SCH (09:16)
[2021-09-04] MEDS: SOLU-MEDROL 40MG VIAL IVP SCH ×3 (09:16→20:54)
[2021-09-04] MEDS: LOSARTAN 25 MG TABLET PO SCH (09:17)
[2021-09-04] MEDS: NIFEDIPINE ER 30 MG TAB PO SCH (09:24)
[2021-09-04] MEDS: IRON SUCROSE COMPLEX 300 MG in 0.9% NACL 250ML 250 ML IV SCH (09:25)
[2021-09-04 10:22] VITALS: BP 151/52
[2021-09-04] MEDS: CEFTRIAXONE 1G VIAL IV SCH (11:57)
[2021-09-04 12:21] VITALS: BP 143/61
[2021-09-04 16:00] VITALS: BP 140/56
[2021-09-04 20:00] VITALS: BP 140/60
[2021-09-04] MEDS: CITALOPRAM 20 MG TABLET PO SCH (20:52)
[2021-09-04] MEDS: MONTELUKAST SODIUM 10 MG TAB PO SCH (20:52)
[2021-09-05] VITALS (7 sets, daily range): BP systolic 123–172; BP diastolic 50–71
[2021-09-05] MEDS: SODIUM CHLORIDE 3% IH SCH ×4 (00:23→16:52)
[2021-09-05] MEDS: INSULIN HUMULIN R 100 UNIT/ML 3ML SQ SCH ×5 (07:58→20:36)
[2021-09-05] MEDS: LACTULOSE 20 GM/30 ML UDCUP PO SCH ×2 (08:59→20:36)
[2021-09-05] MEDS: HYDROXYZINE 10 MG TABLET PO PRN (08:59)
[2021-09-05] MEDS: SPIRONOLACTONE 25 MG TAB PO SCH (09:00)
[2021-09-05] MEDS: ATORVASTATIN 40 MG TABLET PO SCH (09:00)
[2021-09-05] MEDS: FOLIC ACID 1 MG TABLET PO SCH (09:01)
[2021-09-05] MEDS: NIFEDIPINE ER 30 MG TAB PO SCH (09:01)
[2021-09-05] MEDS: LOSARTAN 25 MG TABLET PO SCH (09:01)
[2021-09-05] MEDS: ASPIRIN 81MG CHEW TAB PO SCH (09:01)
[2021-09-05] MEDS: MONTELUKAST SODIUM 10 MG TAB PO SCH (09:02)
[2021-09-05] MEDS: CARVEDILOL 6.25 MG TABLET PO SCH ×2 (09:03→20:33)
[2021-09-05] MEDS: ENOXAPARIN SODIUM 40 MG/0.4 ML SYRINGE SQ SCH (09:04)
[2021-09-05] MEDS: FUROSEMIDE 20MG VIAL IV SCH (09:04)
[2021-09-05] MEDS: SOLU-MEDROL 40MG VIAL IVP SCH (09:06)
[2021-09-05] MEDS: ACETAZOLAMIDE IV SCH (09:06)
[2021-09-05] MEDS: [UNRECOGNIZED DRUG - OTHER] IV SCH (09:06)
[2021-09-05] MEDS: INSULIN GLARGINE 100 UNITS/ML 10 ML VIAL SQ SCH (09:23)
[2021-09-05] MEDS: IRON SUCROSE COMPLEX 300 MG in 0.9% NACL 250ML 250 ML IV SCH (10:48)
[2021-09-05 13:14] LABS: BASOPHILS % (AUTO) 0.2 % (0.0-5.0); EOSINOPHILS % (AUTO) 0.2 % (0.0-8.0); HEMATOCRIT 40.6 % (36-48); MEAN CORPUSCULAR HEMOGLOBIN 27.3 pg (27.0-33.0); MEAN CORPUSCULAR HGB CONC 32.5 g/dL (32.0-36.0); MEAN CORPUSCULAR VOLUME 84.1 fL (79-99); MONOCYTES % (AUTO) 5.5 % (3.0-13.0); NEUTROPHILS % (AUTO) 76.7 % (40.0-77.0); NUCLEATED RED BLOOD CELLS 0.1 % (0.0-0.19); PLATELET COUNT (AUTO) 456 K/uL (130-400); RED BLOOD CELL COUNT(AUTO) 4.83 MIL/uL (4.00-5.50); RED CELL DISTRIBUTION WIDTH 15.5 % (11.0-15.5)
[2021-09-05 13:25] LABS: POTASSIUM 3.8 mmol/L (3.5-5.1)
[2021-09-05 13:28] LABS: PHOSPHORUS 2.2 mg/dL (2.5-4.9); WHITE BLOOD COUNT (AUTO) 31.9 K/uL (4.8-10.8)
[2021-09-05 13:46] LABS: B-TYPE NATRIURETIC PEPTIDE 125 pg/mL (0-100)
[2021-09-05 14:34] LABS: LYMPHOCYTES % (MANUAL) 14 % (22-44); MONOCYTES % (MANUAL) 3 % (2-9); SEGMENTED NEUTROPHILS % 83 % (40-70)
[2021-09-05 14:35] LABS: MAN.DIFF COMMENT-IMPRESSION MANUAL DIFFERENTIAL
[2021-09-05 14:36] LABS: PLATELET MORPHOLOGY COMMENT ADEQUATE
[2021-09-05] MEDS: CEFTRIAXONE 1G VIAL IV SCH (15:30)
[2021-09-05] MEDS ORDERED: INSULIN HUMULIN R 100 UNIT/ML 3ML SQ SCH (17:00)
[2021-09-05] MEDS: CITALOPRAM 20 MG TABLET PO SCH (20:32)
[2021-09-05] MEDS: METFORMIN HCL 500 MG TABLET PO SCH (20:32)
[2021-09-05] MEDS: DOXYCYCLINE HYCLATE 100 MG TABLET PO SCH (20:33)
[2021-09-05] MEDS ORDERED: INSULIN GLARGINE 100 UNITS/ML 10 ML VIAL SQ SCH (21:00)
[2021-09-06] MEDS: SODIUM CHLORIDE 3% IH SCH (01:00)
[2021-09-06 03:57] VITALS: BP 135/56
[2021-09-06 05:49] LABS: CREATININE 0.8 mg/dL (0.5-1.5); POTASSIUM 4.1 mmol/L (3.5-5.1)
[2021-09-06] MEDS: INSULIN HUMULIN R 100 UNIT/ML 3ML SQ SCH ×4 (06:15→12:47)
[2021-09-06] MEDS ORDERED: BUDESONIDE 0.5 MG/2 ML INH IH ONE (06:52)
[2021-09-06] MEDS: ALBUTEROL 0.083% 2.5 MG/3 ML INH IH SCH ×2 (06:53→11:16)
[2021-09-06 08:00] VITALS: BP 142/52
[2021-09-06] MEDS: ATORVASTATIN 40 MG TABLET PO SCH (08:56)
[2021-09-06] MEDS: LACTULOSE 20 GM/30 ML UDCUP PO SCH (08:56)
[2021-09-06] MEDS: FOLIC ACID 1 MG TABLET PO SCH (08:57)
[2021-09-06] MEDS: ASPIRIN 81MG CHEW TAB PO SCH (08:57)
[2021-09-06] MEDS: DOXYCYCLINE HYCLATE 100 MG TABLET PO SCH (08:57)
[2021-09-06] MEDS: SPIRONOLACTONE 25 MG TAB PO SCH (08:57)
[2021-09-06] MEDS: CARVEDILOL 6.25 MG TABLET PO SCH (08:58)
[2021-09-06] MEDS: METFORMIN HCL 500 MG TABLET PO SCH (08:58)
[2021-09-06] MEDS: ENOXAPARIN SODIUM 40 MG/0.4 ML SYRINGE SQ SCH (08:58)
[2021-09-06] MEDS: LOSARTAN 25 MG TABLET PO SCH (08:59)
[2021-09-06] MEDS ORDERED: BUDESONIDE 0.5 MG/2 ML INH IH SCH (09:00)
[2021-09-06] MEDS ORDERED: DULOXETINE HCL 30 MG CAP PO SCH (09:00)
[2021-09-06] MEDS ORDERED: AcetaZOLAMIDE 250 MG TAB PO SCH (09:00)
[2021-09-06] MEDS ORDERED: PREDNISONE 20 MG TABLET PO ONE (09:00)
[2021-09-06] MEDS ORDERED: FUROSEMIDE 40 MG TABLET PO SCH (09:00)
[2021-09-06] MEDS: MONTELUKAST SODIUM 10 MG TAB PO SCH (09:05)
[2021-09-06 12:00] VITALS: BP 138/55
[2021-09-06] MEDS: CEFTRIAXONE 1G VIAL IV SCH (12:40)
[2021-09-06 13:38] LABS: BASOPHILS % (AUTO) 0.2 % (0.0-5.0); EOSINOPHILS % (AUTO) 1.6 % (0.0-8.0); HEMATOCRIT 42.6 % (36-48); LYMPHOCYTES % (AUTO) 24.8 % (21.0-51.0); MEAN CORPUSCULAR HEMOGLOBIN 26.8 pg (27.0-33.0); MEAN CORPUSCULAR VOLUME 86.4 fL (79-99); MONOCYTES % (AUTO) 4.8 % (3.0-13.0); NEUTROPHILS % (AUTO) 67.3 % (40.0-77.0); NUCLEATED RED BLOOD CELLS 0.1 % (0.0-0.19); PLATELET COUNT (AUTO) 402 K/uL (130-400); RED BLOOD CELL COUNT(AUTO) 4.93 MIL/uL (4.00-5.50); WHITE BLOOD COUNT (AUTO) 24.2 K/uL (4.8-10.8)
[2021-09-06] MEDS ORDERED: BUDE0.5A3 IH (13:42)
[2021-09-06] MEDS ORDERED: FOLI1 PO (13:42)
[2021-09-06] MEDS ORDERED: CARV3.12 PO (13:42)
[2021-09-06] MEDS ORDERED: METF-446 PO (13:42)
[2021-09-06] MEDS ORDERED: DOXY100T2 PO (13:42)
[2021-09-06] MEDS ORDERED: LOSA25TA2 PO (13:42)
[2021-09-06] MEDS ORDERED: SPIR25TA6 PO (13:42)
[2021-09-06] MEDS ORDERED: ACET250T28 PO (13:42)
[2021-09-06] MEDS ORDERED: CITA40TA14 PO (13:42)
[2021-09-06] MEDS ORDERED: FURO40TA5 PO (13:42)
[2021-09-06] MEDS ORDERED: SEMA1PEN3 SQ (13:42)
[2021-09-06] MEDS ORDERED: [UNRECOGNIZED DRUG - CODE] MC (13:42)
[2021-09-06] MEDS ORDERED: ALBU2.5V2 IH (13:42)
[2021-09-06] MEDS ORDERED: MONT10TA21 PO (13:42)
[2021-09-06 14:20] LABS: B-TYPE NATRIURETIC PEPTIDE 52 pg/mL (0-100)
== END 2021-09-06 15:35 | disposition home or self-care (01) | DRG 133 ==
LOC: EDH 09:53 → EDHIP 09:54 → 2AH 08-30 10:23 → 3CH 09-01 04:00
PROVIDERS: ADMIT Internal Medicine; ATTEND Internal Medicine
DX: J96.01 Acute respiratory failure with hypoxia (principal); I50.43 Acute on chronic combined systolic (congestive) and diastolic (congestive) heart failure; J45.901 Unspecified asthma with (acute) exacerbation; E87.1 Hypo-osmolality and hyponatremia; E11.65 Type 2 diabetes mellitus with hyperglycemia; D50.9 Iron deficiency anemia, unspecified; E66.01 Morbid (severe) obesity due to excess calories; E78.00 Pure hypercholesterolemia, unspecified; E78.5 Hyperlipidemia, unspecified; G47.33 Obstructive sleep apnea (adult) (pediatric); I11.0 Hypertensive heart disease with heart failure; F17.210 Nicotine dependence, cigarettes, uncomplicated; I25.10 Atherosclerotic heart disease of native coronary artery without angina pectoris; Z20.822 Contact with and (suspected) exposure to COVID-19; J98.11 Atelectasis; Z79.82 Long term (current) use of aspirin; Z79.84 Long term (current) use of oral hypoglycemic drugs; Z79.899 Other long term (current) drug therapy; Z68.41 Body mass index [BMI] 40.0-44.9, adult; Z95.1 Presence of aortocoronary bypass graft; Z82.0 Family history of epilepsy and other diseases of the nervous system; Z82.3 Family history of stroke; Z82.49 Family history of ischemic heart disease and other diseases of the circulatory system; Z82.5 Family history of asthma and other chronic lower respiratory diseases; Z83.3 Family history of diabetes mellitus
CPT/HCPCS: 36415; 36600; 71045; 71250; 80048; 80053; 80061; 81001; 82550; 82607; 82728; 82746; 82803; 82948; 83036; 83540; 83550; 83735; 83874; 83880; 84100; 84145; 84439; 84443; 84481; 84484; 85025; 85045; 87635; 93005; 93306; 93356; 94640; 94664; 94667; 94668; 94760; C9803; G0378; J0696; J1120; J1650; J1756; J1815; J1940; J2920; J2930; J3420; J3490; J7050

== ENCOUNTER 2022-02-02 04:47 | Inpatient (IN) | payer MEDICAID ==
[~2022-02-02] VITALS: Ht 157.5 cm; Wt 97.9 kg
[~2022-02-02 04:47] MED LIST changes: +ACET250T28 PO; +ALBU18HF7 IH; +ALBU2.5V2 IH; -ASPI-1005 PO; +ASPI-1197 PO; +ATOR-2 PO; -ATOR40TA69 PO; +BENZ-70 PO; +BUDE0.5A3 IH; +BUME1TAB7 PO; +CARV3.12 PO; +CITA-108 PO; -CITA20TA17 PO; +CLOP-31 PO; +FOLI1 PO; +GLIM4TAB36 PO; -HYDR-3421 PO; +LOSA50TA64 PO; +MONT-39 PO; +SEMA1PEN3 SQ; +SPIR25TA6 PO; +[UNRECOGNIZED DRUG - CODE] MC
[2022-02-02] MEDS ORDERED: ALBUTEROL 0.083% 2.5 MG/3 ML INH IH ONE ×2 (04:52→05:00)
[2022-02-02] MEDS ORDERED: SOLU-MEDROL 125MG VIAL IVP ONE (05:00)
[2022-02-02 05:12] LABS: BASOPHILS % (AUTO) 0.3 % (0.0-5.0); EOSINOPHILS % (AUTO) 3.3 % (0.0-8.0); LYMPHOCYTES % (AUTO) 11.9 % (21.0-51.0); MEAN CORPUSCULAR HEMOGLOBIN 27.9 pg (27.0-33.0); MEAN CORPUSCULAR HGB CONC 32.8 g/dL (32.0-36.0); MEAN CORPUSCULAR VOLUME 85.3 fL (79-99); MONOCYTES % (AUTO) 7.2 % (3.0-13.0); NEUTROPHILS % (AUTO) 76.7 % (40.0-77.0); PLATELET COUNT (AUTO) 265 K/uL (130-400); RED BLOOD CELL COUNT(AUTO) 4.69 MIL/uL (4.00-5.50); RED CELL DISTRIBUTION WIDTH 12.9 % (11.0-15.5); WHITE BLOOD COUNT (AUTO) 12.8 K/uL (4.8-10.8)
[2022-02-02 05:26] LABS: CREATININE 0.8 mg/dL (0.5-1.5); POTASSIUM 3.7 mmol/L (3.5-5.1)
[2022-02-02 05:36] LABS: ALBUMIN 3.4 g/dL (3.5-5.0); TOTAL PROTEIN, SERUM 6.8 g/dL (6.0-8.3)
[2022-02-02] MEDS ORDERED: LEVOFLOXACIN 750 MG/D5W 150ML BAG IVPB SCH (06:00)
[2022-02-02] MEDS ORDERED: ZOSYN 3.375GM +NS 50ML IV SCH (06:00)
[2022-02-02] MEDS ORDERED: LEVOFLOXACIN 750 MG/D5W 150 ML 150 ML ONE (06:25)
[2022-02-02] MEDS ORDERED: FURO80TA3 PO (07:25)
[2022-02-02] MEDS ORDERED: IPRATROPIUM/ALBUTEROL SULFATE 3 ML SOLUTION IH SCH ×2 (08:00→12:00)
[2022-02-02] MEDS ORDERED: DEXTROSE 50%-WATER 50 ML DISP.SYRIN IV PRN (08:00)
[2022-02-02] MEDS ORDERED: POTASSIUM CHLORIDE 20MEQ/100ML 100 ML IV PRN (08:00)
[2022-02-02] MEDS ORDERED: ONDANSETRON 4MG INJ IV PRN (08:00)
[2022-02-02] MEDS ORDERED: POTASSIUM CHLORIDE 10% ELIXIR 20 MEQ/15 ML UDCUP PO PRN (08:00)
[2022-02-02] MEDS ORDERED: MAGNESIUM 2GM PREMIX 50ML 50 ML IV PRN (08:00)
[2022-02-02] MEDS ORDERED: GUAIFENESIN-DM 200/20 MG 10 ML PO PRN (08:00)
[2022-02-02] MEDS ORDERED: DiphenhydrAMINE HCL 50 MG/ML VIAL IV PRN (08:00)
[2022-02-02] MEDS ORDERED: MAG/ALUM/SIMETH 30 ML UDCUP PO PRN (08:00)
[2022-02-02] MEDS ORDERED: NITROGLYCERIN 0.4 MG SL TAB SL PRN (08:00)
[2022-02-02] MEDS ORDERED: LIDOCAINE HCL-MPF 1% 2ML VIAL IV PRN (08:00)
[2022-02-02] MEDS ORDERED: ACETAMINOPHEN 325 MG TAB PO PRN ×2 (08:00)
[2022-02-02] MEDS ORDERED: LACTULOSE 20 GM/30 ML UDCUP PO PRN (08:00)
[2022-02-02] MEDS ORDERED: GLUCAGON 1MG KIT 1 MG ML IM PRN (08:00)
[2022-02-02] MEDS ORDERED: DIPHENHYDRAMINE HCL 25 MG CAPSULE PO PRN (08:00)
[2022-02-02] MEDS ORDERED: ATORVASTATIN 40 MG TABLET PO SCH (09:00)
[2022-02-02] MEDS ORDERED: FAMOTIDINE 20MG VIAL IV SCH (09:00)
[2022-02-02] MEDS ORDERED: SOLU-MEDROL 40MG VIAL IVP SCH (09:00)
[2022-02-02] MEDS: IPRATROPIUM/ALBUTEROL SULFATE 3 ML SOLUTION IH SCH ×5 (09:00→22:36)
[2022-02-02] MEDS: SOLU-MEDROL 40MG VIAL IVP SCH (09:31)
[2022-02-02] MEDS: FUROSEMIDE 40MG VIAL IVP SCH ×2 (09:31→20:41)
[2022-02-02] MEDS: MONTELUKAST SODIUM 10 MG TAB PO SCH (09:32)
[2022-02-02] MEDS: HEPARIN 5,000 UNIT VIAL SQ SCH ×3 (09:32→20:30)
[2022-02-02] MEDS: FOLIC ACID 1 MG TABLET PO SCH (09:32)
[2022-02-02] MEDS: CITALOPRAM 20 MG TABLET PO SCH (09:32)
[2022-02-02] MEDS: ASPIRIN 81MG CHEW TAB PO SCH (09:32)
[2022-02-02] MEDS: LOSARTAN 50 MG TABLET PO SCH (09:32)
[2022-02-02] MEDS: FAMOTIDINE 20MG TAB PO SCH ×2 (09:32→20:40)
[2022-02-02] MEDS: SPIRONOLACTONE 25 MG TAB PO SCH (09:32)
[2022-02-02] MEDS: CLOPIDOGREL 75MG TAB PO SCH (09:33)
[2022-02-02] MEDS: CARVEDILOL 3.125 MG TABLET PO SCH ×2 (09:33→20:40)
[2022-02-02] MEDS: BUDESONIDE 0.5 MG/2 ML INH IH SCH ×2 (09:51→18:49)
[2022-02-02] MEDS ORDERED: INSULIN HUMULIN R 100 UNIT/ML 3ML SQ SCH (11:30)
[2022-02-02] MEDS ORDERED: INSULIN GLARGINE 100 UNITS/ML 10 ML VIAL SQ SCH (13:30)
[2022-02-02] MEDS: ZOSYN 3.375GM+NS 50ML 50 ML IV SCH ×2 (14:22→20:41)
[2022-02-02 15:40] VITALS: BP 143/44
[2022-02-02] MEDS ORDERED: MAGNESIUM 2GM PREMIX 50ML 50 ML IV SCH (16:30)
[2022-02-02] MEDS: INSULIN HUMULIN R 100 UNIT/ML 3ML SQ SCH ×2 (16:46→20:32)
[2022-02-02 17:12] LABS: ABG BASE EXCESS 7.9 mmol/L (-2.0-3.0); ABG HCO3 33.4 mmol/L (21.0-28.0); ABG OXYGEN SATURATION 92.2 % (95.0-99.0); ABG PCO2 49 mmHg (32-45)
[2022-02-02 20:00] VITALS: BP 160/53
[2022-02-02] MEDS: INSULIN GLARGINE 100 UNITS/ML 10 ML VIAL SQ SCH (20:33)
[2022-02-02] MEDS: KCL 20 MEQ ERTAB PO PRN (20:41)
[2022-02-02] MEDS ORDERED: FUROSEMIDE 20MG VIAL IV ONE (23:00)
[2022-02-03] VITALS (7 sets, daily range): BP systolic 120–144; BP diastolic 45–72
[2022-02-03] MEDS: IPRATROPIUM/ALBUTEROL SULFATE 3 ML SOLUTION IH SCH ×7 (02:47→22:33)
[2022-02-03 05:01] LABS: BASOPHILS % (AUTO) 0.2 % (0.0-5.0); EOSINOPHILS % (AUTO) 0.1 % (0.0-8.0); HEMATOCRIT 38.6 % (36-48); LYMPHOCYTES % (AUTO) 10.8 % (21.0-51.0); MEAN CORPUSCULAR HEMOGLOBIN 28.1 pg (27.0-33.0); MEAN CORPUSCULAR HGB CONC 31.6 g/dL (32.0-36.0); MEAN CORPUSCULAR VOLUME 88.9 fL (79-99); MONOCYTES % (AUTO) 7.8 % (3.0-13.0); NEUTROPHILS % (AUTO) 80.5 % (40.0-77.0); PLATELET COUNT (AUTO) 262 K/uL (130-400); RED BLOOD CELL COUNT(AUTO) 4.34 MIL/uL (4.00-5.50); RED CELL DISTRIBUTION WIDTH 12.7 % (11.0-15.5); WHITE BLOOD COUNT (AUTO) 17.5 K/uL (4.8-10.8)
[2022-02-03 05:26] LABS: HEMOGLOBIN A1C 10.1 % (4.0-6.0)
[2022-02-03 05:30] LABS: CREATININE 0.9 mg/dL (0.5-1.5); PHOSPHORUS 3.9 mg/dL (2.5-4.9); POTASSIUM 4.3 mmol/L (3.5-5.1)
[2022-02-03] MEDS: INSULIN HUMULIN R 100 UNIT/ML 3ML SQ SCH ×4 (05:49→23:10)
[2022-02-03] MEDS: ZOSYN 3.375GM+NS 50ML 50 ML IV SCH ×3 (05:51→23:11)
[2022-02-03] MEDS: BUDESONIDE 0.5 MG/2 ML INH IH SCH ×2 (06:44→18:30)
[2022-02-03] MEDS ORDERED: FUROSEMIDE 20 MG TABLET PO SCH (09:00)
[2022-02-03] MEDS: FOLIC ACID 1 MG TABLET PO SCH (10:02)
[2022-02-03] MEDS: SOLU-MEDROL 40MG VIAL IVP SCH (10:02)
[2022-02-03] MEDS: SPIRONOLACTONE 25 MG TAB PO SCH (10:02)
[2022-02-03] MEDS: MAGNESIUM OXIDE 400 MG TABLET PO SCH (10:02)
[2022-02-03] MEDS: CITALOPRAM 20 MG TABLET PO SCH (10:02)
[2022-02-03] MEDS: ASPIRIN 81MG CHEW TAB PO SCH (10:03)
[2022-02-03] MEDS: LOSARTAN 50 MG TABLET PO SCH (10:03)
[2022-02-03] MEDS: MONTELUKAST SODIUM 10 MG TAB PO SCH (10:03)
[2022-02-03] MEDS: CARVEDILOL 3.125 MG TABLET PO SCH ×2 (10:04→23:02)
[2022-02-03] MEDS: CLOPIDOGREL 75MG TAB PO SCH (10:04)
[2022-02-03] MEDS: HEPARIN 5,000 UNIT VIAL SQ SCH ×3 (10:07→23:09)
[2022-02-03] MEDS: FAMOTIDINE 20MG TAB PO SCH ×2 (10:10→23:00)
[2022-02-03] MEDS ORDERED: GUAIFENESIN-CODEINE 5 ML SYRUP PO PRN (12:30)
[2022-02-03] MEDS ORDERED: BUMETANIDE 1MG/4ML VIAL IVP SCH (13:00)
[2022-02-03] MEDS ORDERED: IOHEXOL 350 MG/ML 100ML INFUS..BTL IV ONE (14:22)
[2022-02-03] MEDS: BUMETANIDE 1 MG TAB PO SCH (23:00)
[2022-02-03] MEDS: ATORVASTATIN 40 MG TABLET PO SCH (23:01)
[2022-02-03] MEDS: INSULIN GLARGINE 100 UNITS/ML 10 ML VIAL SQ SCH (23:11)
[2022-02-04] MEDS: IPRATROPIUM/ALBUTEROL SULFATE 3 ML SOLUTION IH SCH ×5 (01:54→21:08)
[2022-02-04 04:37] VITALS: BP 130/50
[2022-02-04 05:31] LABS: BASOPHILS % (AUTO) 0.1 % (0.0-5.0); EOSINOPHILS % (AUTO) 1.8 % (0.0-8.0); HEMATOCRIT 37.1 % (36-48); LYMPHOCYTES % (AUTO) 18.2 % (21.0-51.0); MEAN CORPUSCULAR HGB CONC 32.6 g/dL (32.0-36.0); MEAN CORPUSCULAR VOLUME 85.9 fL (79-99); MONOCYTES % (AUTO) 8.5 % (3.0-13.0); PLATELET COUNT (AUTO) 286 K/uL (130-400); RED BLOOD CELL COUNT(AUTO) 4.32 MIL/uL (4.00-5.50); RED CELL DISTRIBUTION WIDTH 12.9 % (11.0-15.5); WHITE BLOOD COUNT (AUTO) 15.7 K/uL (4.8-10.8)
[2022-02-04 05:43] LABS: CREATININE 0.9 mg/dL (0.5-1.5); MAGNESIUM 1.7 mg/dL (1.80-2.40); POTASSIUM 3.3 mmol/L (3.5-5.1)
[2022-02-04] MEDS: ZOSYN 3.375GM+NS 50ML 50 ML IV SCH ×3 (05:43→20:57)
[2022-02-04] MEDS: INSULIN HUMULIN R 100 UNIT/ML 3ML SQ SCH ×4 (05:43→21:03)
[2022-02-04] MEDS: BUDESONIDE 0.5 MG/2 ML INH IH SCH ×2 (06:08→21:08)
[2022-02-04 08:00] VITALS: BP 117/36
[2022-02-04] MEDS: MONTELUKAST SODIUM 10 MG TAB PO SCH (09:53)
[2022-02-04] MEDS: CLOPIDOGREL 75MG TAB PO SCH (09:54)
[2022-02-04] MEDS: LOSARTAN 50 MG TABLET PO SCH (09:55)
[2022-02-04] MEDS: HEPARIN 5,000 UNIT VIAL SQ SCH ×3 (09:56→21:03)
[2022-02-04] MEDS: PREDNISONE 20 MG TABLET PO SCH (09:56)
[2022-02-04] MEDS: FOLIC ACID 1 MG TABLET PO SCH (09:57)
[2022-02-04] MEDS: ASPIRIN 81MG CHEW TAB PO SCH (09:57)
[2022-02-04] MEDS: CARVEDILOL 3.125 MG TABLET PO SCH ×2 (09:57→20:59)
[2022-02-04] MEDS: FAMOTIDINE 20MG TAB PO SCH ×2 (09:57→20:57)
[2022-02-04] MEDS: CITALOPRAM 20 MG TABLET PO SCH (09:58)
[2022-02-04] MEDS: MAGNESIUM OXIDE 400 MG TABLET PO SCH (09:58)
[2022-02-04] MEDS: BUMETANIDE 1 MG TAB PO SCH ×2 (09:58→20:57)
[2022-02-04] MEDS: SPIRONOLACTONE 25 MG TAB PO SCH ×2 (09:58→20:58)
[2022-02-04] MEDS: KCL 20 MEQ ERTAB PO PRN ×3 (11:38→17:08)
[2022-02-04 12:00] VITALS: BP 130/46
[2022-02-04 16:00] VITALS: BP 136/45
[2022-02-04] MEDS ORDERED: LEVO-70 PO (16:53)
[2022-02-04] MEDS ORDERED: FLUT1AER IH (16:53)
[2022-02-04] MEDS ORDERED: PRED20TA3 PO (16:53)
[2022-02-04] MEDS: ATORVASTATIN 40 MG TABLET PO SCH (20:57)
[2022-02-04] MEDS: INSULIN GLARGINE 100 UNITS/ML 10 ML VIAL SQ SCH (21:02)
[2022-02-04 21:33] VITALS: BP 122/49
[2022-02-05 00:05] VITALS: BP 142/49
[2022-02-05] MEDS: IPRATROPIUM/ALBUTEROL SULFATE 3 ML SOLUTION IH SCH ×3 (00:09→10:22)
[2022-02-05 03:49] LABS: BASOPHILS % (AUTO) 0.1 % (0.0-5.0); EOSINOPHILS % (AUTO) 2.9 % (0.0-8.0); LYMPHOCYTES % (AUTO) 26.4 % (21.0-51.0); MEAN CORPUSCULAR HEMOGLOBIN 27.7 pg (27.0-33.0); MEAN CORPUSCULAR HGB CONC 31.3 g/dL (32.0-36.0); MEAN CORPUSCULAR VOLUME 88.4 fL (79-99); MONOCYTES % (AUTO) 9.4 % (3.0-13.0); NEUTROPHILS % (AUTO) 60.8 % (40.0-77.0); PLATELET COUNT (AUTO) 286 K/uL (130-400); RED BLOOD CELL COUNT(AUTO) 4.41 MIL/uL (4.00-5.50); RED CELL DISTRIBUTION WIDTH 12.8 % (11.0-15.5); WHITE BLOOD COUNT (AUTO) 15.8 K/uL (4.8-10.8)
[2022-02-05 03:59] LABS: CREATININE 0.9 mg/dL (0.5-1.5); POTASSIUM 3.5 mmol/L (3.5-5.1)
[2022-02-05] MEDS: ZOSYN 3.375GM+NS 50ML 50 ML IV SCH (04:58)
[2022-02-05 05:05] VITALS: BP 132/47
[2022-02-05] MEDS: BUDESONIDE 0.5 MG/2 ML INH IH SCH (06:31)
[2022-02-05] MEDS: INSULIN HUMULIN R 100 UNIT/ML 3ML SQ SCH (06:35)
[2022-02-05] MEDS: KCL 20 MEQ ERTAB PO PRN (06:52)
[2022-02-05 08:13] VITALS: BP 139/50
[2022-02-05] MEDS: MAGNESIUM OXIDE 400 MG TABLET PO SCH (09:21)
[2022-02-05] MEDS: CLOPIDOGREL 75MG TAB PO SCH (09:21)
[2022-02-05] MEDS: SPIRONOLACTONE 25 MG TAB PO SCH (09:22)
[2022-02-05] MEDS: CARVEDILOL 3.125 MG TABLET PO SCH (09:22)
[2022-02-05] MEDS: CITALOPRAM 20 MG TABLET PO SCH (09:22)
[2022-02-05] MEDS: BUMETANIDE 1 MG TAB PO SCH (09:22)
[2022-02-05] MEDS: MONTELUKAST SODIUM 10 MG TAB PO SCH (09:23)
[2022-02-05] MEDS: FOLIC ACID 1 MG TABLET PO SCH (09:23)
[2022-02-05] MEDS: FAMOTIDINE 20MG TAB PO SCH (09:23)
[2022-02-05] MEDS: ASPIRIN 81MG CHEW TAB PO SCH (09:23)
[2022-02-05] MEDS: PREDNISONE 20 MG TABLET PO SCH (09:23)
[2022-02-05] MEDS: LOSARTAN 50 MG TABLET PO SCH (09:23)
[2022-02-05] MEDS: HEPARIN 5,000 UNIT VIAL SQ SCH (09:30)
[2022-02-05 11:19] VITALS: BP 121/67
[2022-02-05] MEDS ORDERED: SPIR50TA PO (11:34)
[2022-02-05] MEDS ORDERED: FLUC100T12 PO (11:34)
== END 2022-02-05 13:20 | disposition home or self-care (01) | DRG 140 ==
LOC: EDH 04:47 → EDHIP 04:48 → 4CH 15:40
PROVIDERS: ADMIT Hospitalist; ATTEND Hospitalist
DX: J44.1 Chronic obstructive pulmonary disease with (acute) exacerbation (principal); J96.01 Acute respiratory failure with hypoxia; I50.33 Acute on chronic diastolic (congestive) heart failure; Z20.822 Contact with and (suspected) exposure to COVID-19; I11.0 Hypertensive heart disease with heart failure; F41.9 Anxiety disorder, unspecified; F32.A Depression, unspecified; E78.5 Hyperlipidemia, unspecified; E66.01 Morbid (severe) obesity due to excess calories; F17.210 Nicotine dependence, cigarettes, uncomplicated; I25.810 Atherosclerosis of coronary artery bypass graft(s) without angina pectoris; Z95.1 Presence of aortocoronary bypass graft; Z79.02 Long term (current) use of antithrombotics/antiplatelets; Z88.6 Allergy status to analgesic agent; Z83.3 Family history of diabetes mellitus; Z82.49 Family history of ischemic heart disease and other diseases of the circulatory system; Z79.899 Other long term (current) drug therapy; Z79.82 Long term (current) use of aspirin
CPT/HCPCS: 36415; 36600; 71045; 71270; 80048; 80053; 82550; 82803; 82948; 83036; 83605; 83735; 83874; 83880; 84100; 84145; 84484; 85025; 87040; 87071; 87205; 87635; 87804; 93005; 93306; 93356; 94640; 94664; 94760; C9803; G0378; J1644; J1815; J1940; J1956; J2543; J2920; J2930; J3475; J3490; Q9967

== ENCOUNTER 2022-10-24 09:49 | Emergency (ER) | payer MEDICAID ==
[~2022-10-24] VITALS: Ht 157.5 cm; Wt 99.3 kg
[~2022-10-24 09:49] MED LIST changes: -ACET250T28 PO; -ALBU2.5V2 IH; +AMOX-426 PO; -ATOR-2 PO; +ATOR40TA69 PO; -BENZ-70 PO; -BUDE0.5A3 IH; -BUME1TAB7 PO; -CLOP-31 PO; +DOXY100C5 PO; +FLUT1AER IH; -FOLI1 PO; +IBUP-2077 PO; -MONT-39 PO; +PRED20TA3 PO; -SEMA1PEN3 SQ; +SITA100T12 PO; -[UNRECOGNIZED DRUG - CODE] MC
[2022-10-24 10:40] LABS: APPEARANCE,URINE CLEAR (CLEAR); BILIRUBIN,URINE NEGATIVE (NEGATIVE); COLOR,URINE LIGHT-YELLOW (YELLOW); GLUCOSE, URINE (UA) NEGATIVE (NEGATIVE); KETONES,URINE NEGATIVE (NEGATIVE); LEUKOCYTE ESTERASE ,URINE 75 Leu/uL (NEGATIVE); NITRATE,URINE NEGATIVE (NEGATIVE); OCCULT BLOOD,URINE NEGATIVE (NEGATIVE); PROTEIN,URINE 70 mg/dL (NEGATIVE); UROBILINOGEN,URINE 0.2 mg/dL (0.2-1.0)
[2022-10-24 10:41] LABS: ADD UA MICROSCOPIC YES
[2022-10-24 10:52] LABS: MUCUS,URINE RARE LPF (None Seen); SQUAMOUS EPITHELIAL CELL,UR RARE /HPF (0-2)
[2022-10-24] MEDS ORDERED: KETOROLAC 15MG/ML VIAL (15MG/ML) IM ONE (13:00)
[2022-10-24 13:38] LABS: BASOPHILS % (AUTO) 0.6 % (0.0-5.0); EOSINOPHILS # (AUTO) 0.36 K/uL (0.00-0.70); EOSINOPHILS % (AUTO) 2.1 % (0.0-8.0); HEMATOCRIT 42.3 % (36-48); IMMATURE GRANULOCYTE ABSOLUTE 0.04 K/uL (0-1); LYMPHOCYTES # (AUTO) 3.3 K/uL (1.0-4.8); LYMPHOCYTES % (AUTO) 19.5 % (21.0-51.0); MEAN CORPUSCULAR HEMOGLOBIN 28.6 pg (27.0-33.0); MEAN CORPUSCULAR HGB CONC 33.1 g/dL (32.0-36.0); MEAN CORPUSCULAR VOLUME 86.5 fL (79-99); MONOCYTES # (AUTO) 0.9 K/uL (0.1-1.0); MONOCYTES % (AUTO) 5.3 % (3.0-13.0); NEUTROPHILS # (AUTO) 12.1 K/uL (1.8-7.7); NEUTROPHILS % (AUTO) 72.3 % (40.0-77.0); PLATELET COUNT (AUTO) 311 K/uL (130-400); RED BLOOD CELL COUNT(AUTO) 4.89 MIL/uL (4.00-5.50); RED CELL DISTRIBUTION WIDTH 13.2 % (11.0-15.5); WHITE BLOOD COUNT (AUTO) 16.8 K/uL (4.8-10.8)
[2022-10-24 13:53] LABS: ALBUMIN 4.3 g/dL (3.5-5.0); BILIRUBIN,TOTAL 1.3 mg/dL (0.2-1.0); CREATININE 0.9 mg/dL (0.5-1.5); POTASSIUM 4.3 mmol/L (3.5-5.1); TOTAL PROTEIN, SERUM 8.9 g/dL (6.0-8.3)
[2022-10-24] MEDS ORDERED: CEFTRIAXONE 1G VIAL IVPB ONE (14:00)
[2022-10-24] MEDS ORDERED: 0.9%NACL 1000ML 1,000 ML IV ONE (14:00)
[2022-10-24] MEDS ORDERED: IOHEXOL-350 75 ML VIAL IV ONE (14:34)
[2022-10-24] MEDS ORDERED: SULF1TAB42 PO (15:51)
[2022-10-24 16:08] VITALS: BP 145/78; PULSE 82; RESP 18; O2SAT 98
[2022-10-28] MEDS ORDERED: FURO80TA3 PO (09:54)
[2022-10-28] MEDS ORDERED: TRAM50TA4 PO (12:52)
[2022-10-28] MEDS ORDERED: GABA-529 PO (13:02)
== END 2022-10-24 16:09 | disposition home or self-care (01) ==
LOC: EDH 09:49
DX: N39.0 Urinary tract infection, site not specified (principal); E11.9 Type 2 diabetes mellitus without complications; E78.00 Pure hypercholesterolemia, unspecified; I11.0 Hypertensive heart disease with heart failure; I50.9 Heart failure, unspecified; Z79.51 Long term (current) use of inhaled steroids; Z79.52 Long term (current) use of systemic steroids; Z79.82 Long term (current) use of aspirin; Z79.84 Long term (current) use of oral hypoglycemic drugs; Z79.899 Other long term (current) drug therapy; Z95.1 Presence of aortocoronary bypass graft
CPT/HCPCS: 99285; 74177; 96365; 80053; 85025; 87088; 81001; 36415; 96372; J7030; J0696; J1885; Q9967

== ENCOUNTER 2022-10-30 19:46 | Emergency (ER) | payer MEDICAID ==
[~2022-10-30] VITALS: Ht 157.5 cm; Wt 99.3 kg
[~2022-10-30 19:46] MED LIST changes: -AMOX-426 PO; -DOXY100C5 PO; +FURO80TA3 PO; +GABA-529 PO; -PRED20TA3 PO; -SITA100T12 PO; +TRAM50TA4 PO
[2022-10-30] MEDS ORDERED: IBUP-1493 PO (20:20)
[2022-10-30] MEDS ORDERED: LIDOP TD (20:20)
[2022-10-30] MEDS ORDERED: MORPHINE 2 MG SYG IVP ONE (20:30)
[2022-10-30 20:40] LABS: ADD UA MICROSCOPIC YES; APPEARANCE,URINE CLOUDY (CLEAR); BILIRUBIN,URINE NEGATIVE (NEGATIVE); COLOR,URINE YELLOW (YELLOW); GLUCOSE, URINE (UA) NEGATIVE (NEGATIVE); KETONES,URINE NEGATIVE (NEGATIVE); LEUKOCYTE ESTERASE ,URINE 250 Leu/uL (NEGATIVE); NITRATE,URINE NEGATIVE (NEGATIVE); OCCULT BLOOD,URINE NEGATIVE (NEGATIVE); PH,URINE 5.5 (5.0-8.0); PROTEIN,URINE 100 mg/dL (NEGATIVE); UROBILINOGEN,URINE 3 mg/dL (0.2-1.0)
[2022-10-30 20:42] LABS: BACTERIA,URINE RARE /HPF (None Seen); MUCUS,URINE RARE LPF (None Seen); NON-SQUAMOUS EPITHELIAL CELL 1 /HPF (0-2); SQUAMOUS EPITHELIAL CELL,UR MANY /HPF (0-2)
[2022-10-30 20:57] LABS: BASOPHILS # (AUTO) 0.06 K/uL (0.00-0.20); BASOPHILS % (AUTO) 0.5 % (0.0-5.0); EOSINOPHILS # (AUTO) 0.43 K/uL (0.00-0.70); EOSINOPHILS % (AUTO) 3.4 % (0.0-8.0); HEMATOCRIT 39.7 % (36-48); IMMATURE GRANULOCYTE ABSOLUTE 0.04 K/uL (0-1); LYMPHOCYTES # (AUTO) 2.4 K/uL (1.0-4.8); LYMPHOCYTES % (AUTO) 18.8 % (21.0-51.0); MEAN CORPUSCULAR HEMOGLOBIN 28.3 pg (27.0-33.0); MEAN CORPUSCULAR HGB CONC 32.2 g/dL (32.0-36.0); MEAN CORPUSCULAR VOLUME 87.8 fL (79-99); MONOCYTES # (AUTO) 0.8 K/uL (0.1-1.0); MONOCYTES % (AUTO) 6.6 % (3.0-13.0); NEUTROPHILS # (AUTO) 8.9 K/uL (1.8-7.7); NEUTROPHILS % (AUTO) 70.4 % (40.0-77.0); PLATELET COUNT (AUTO) 262 K/uL (130-400); RED BLOOD CELL COUNT(AUTO) 4.52 MIL/uL (4.00-5.50); RED CELL DISTRIBUTION WIDTH 13.3 % (11.0-15.5); WHITE BLOOD COUNT (AUTO) 12.7 K/uL (4.8-10.8)
[2022-10-30 21:14] LABS: CREATININE 0.9 mg/dL (0.5-1.5)
[2022-10-30] MEDS ORDERED: DIATR MEGLU/DIATRIZOATE SODIUM 30 ML BOTTLE ONE (21:14)
[2022-10-30 21:18] LABS: ALBUMIN 3.7 g/dL (3.5-5.0); BILIRUBIN,TOTAL 1.1 mg/dL (0.2-1.0); TOTAL PROTEIN, SERUM 7.8 g/dL (6.0-8.3)
[2022-10-30] MEDS ORDERED: IOHEXOL 350 MG/ML 100ML INFUS..BTL IV ONE (23:47)
[2022-10-31] MEDS ORDERED: IBUPROFEN 800 MG TAB PO ONE (01:00)
[2022-10-31] MEDS ORDERED: GABAPENTIN 100 MG CAPSULE PO SCH (01:00)
[2022-10-31 01:30] VITALS: BP 152/56; PULSE 76; RESP 18; O2SAT 99
== END 2022-10-31 01:33 | disposition home or self-care (01) ==
LOC: EDH 19:46
DX: K57.30 Diverticulosis of large intestine without perforation or abscess without bleeding (principal); K52.9 Noninfective gastroenteritis and colitis, unspecified; E78.00 Pure hypercholesterolemia, unspecified; I10 Essential (primary) hypertension; Z79.1 Long term (current) use of non-steroidal anti-inflammatories (NSAID); Z79.51 Long term (current) use of inhaled steroids; Z79.52 Long term (current) use of systemic steroids; Z79.82 Long term (current) use of aspirin; Z79.84 Long term (current) use of oral hypoglycemic drugs; Z79.899 Other long term (current) drug therapy; Z90.49 Acquired absence of other specified parts of digestive tract; Z95.1 Presence of aortocoronary bypass graft
CPT/HCPCS: 99285; 74177; 96374; 82550; 84484 ×2; 80053; 83880; 83690; 85025; 85378; 83605; 81001; 36415; 93005; Q9963; J2270; Q9967

== ENCOUNTER 2022-11-06 14:35 | Emergency (ER) | payer MEDICAID ==
[~2022-11-06] VITALS: Ht 157.5 cm; Wt 99.3 kg
[~2022-11-06 14:35] MED LIST changes: +IBUP-1493 PO; +LIDOP TD
[2022-11-06 15:05] LABS: APPEARANCE,URINE CLEAR (CLEAR); BILIRUBIN,URINE NEGATIVE (NEGATIVE); COLOR,URINE YELLOW (YELLOW); GLUCOSE, URINE (UA) NEGATIVE (NEGATIVE); KETONES,URINE NEGATIVE (NEGATIVE); LEUKOCYTE ESTERASE ,URINE NEGATIVE Leu/uL (NEGATIVE); NITRATE,URINE NEGATIVE (NEGATIVE); OCCULT BLOOD,URINE NEGATIVE (NEGATIVE); PROTEIN,URINE TRACE mg/dL (NEGATIVE)
[2022-11-06 15:13] LABS: ADD UA MICROSCOPIC YES
[2022-11-06 15:18] LABS: BACTERIA,URINE FEW /HPF (None Seen); MUCUS,URINE FEW LPF (None Seen); SQUAMOUS EPITHELIAL CELL,UR MOD /HPF (0-2)
[2022-11-06 15:49] LABS: BASOPHILS % (AUTO) 0.7 % (0.0-5.0); EOSINOPHILS # (AUTO) 0.54 K/uL (0.00-0.70); EOSINOPHILS % (AUTO) 3.9 % (0.0-8.0); HEMATOCRIT 40.9 % (36-48); IMMATURE GRANULOCYTE ABSOLUTE 0.03 K/uL (0-1); LYMPHOCYTES # (AUTO) 3.2 K/uL (1.0-4.8); LYMPHOCYTES % (AUTO) 23.1 % (21.0-51.0); MEAN CORPUSCULAR HEMOGLOBIN 28.8 pg (27.0-33.0); MEAN CORPUSCULAR VOLUME 87.2 fL (79-99); MONOCYTES # (AUTO) 1.1 K/uL (0.1-1.0); MONOCYTES % (AUTO) 8.2 % (3.0-13.0); NEUTROPHILS # (AUTO) 8.7 K/uL (1.8-7.7); NEUTROPHILS % (AUTO) 63.9 % (40.0-77.0); PLATELET COUNT (AUTO) 284 K/uL (130-400); RED BLOOD CELL COUNT(AUTO) 4.69 MIL/uL (4.00-5.50); RED CELL DISTRIBUTION WIDTH 13.5 % (11.0-15.5); WHITE BLOOD COUNT (AUTO) 13.7 K/uL (4.8-10.8)
[2022-11-06] MEDS ORDERED: MORPHINE 2 MG SYG IVP ONE (16:00)
[2022-11-06] MEDS ORDERED: ONDANSETRON 4MG INJ IVP ONE (16:00)
[2022-11-06] MEDS ORDERED: CEFTRIAXONE 1G VIAL IVPB ONE (16:00)
[2022-11-06 16:06] LABS: ALBUMIN 3.7 g/dL (3.5-5.0); BILIRUBIN,TOTAL 0.5 mg/dL (0.2-1.0); CREATININE 1.6 mg/dL (0.5-1.5); POTASSIUM 3.8 mmol/L (3.5-5.1)
[2022-11-06] MEDS ORDERED: 0.9% NACL 500ML IV.SOLN 500 ML IV ONE (16:30)
[2022-11-06] MEDS ORDERED: CEPH250T PO (16:31)
[2022-11-06] MEDS ORDERED: TRAM50TA4 PO (16:31)
[2022-11-06] MEDS ORDERED: ONDA4TAB10 PO (16:31)
[2022-11-06 16:36] VITALS: BP 140/60; PULSE 80; RESP 18; O2SAT 98
== END 2022-11-06 17:11 | disposition home or self-care (01) ==
LOC: EDH 14:35
DX: N39.0 Urinary tract infection, site not specified (principal); R11.0 Nausea; E78.00 Pure hypercholesterolemia, unspecified; E11.9 Type 2 diabetes mellitus without complications; I10 Essential (primary) hypertension; Z79.1 Long term (current) use of non-steroidal anti-inflammatories (NSAID); Z79.51 Long term (current) use of inhaled steroids; Z79.82 Long term (current) use of aspirin; Z79.84 Long term (current) use of oral hypoglycemic drugs; Z79.899 Other long term (current) drug therapy; Z90.49 Acquired absence of other specified parts of digestive tract; Z95.1 Presence of aortocoronary bypass graft
CPT/HCPCS: 99284; 96365; 96375; 96366; 80053; 83690; 85025; 87077; 87088; 87186; 81001; 36415; J2270; J0696; J2405

== ENCOUNTER 2022-12-09 00:39 | Emergency (ER) | payer MEDICAID ==
[~2022-12-09] VITALS: Ht 157.5 cm; Wt 98.0 kg
[~2022-12-09 00:39] MED LIST changes: +CEPH250T PO; +ONDA4TAB10 PO
[2022-12-09] MEDS ORDERED: KETOROLAC 30MG VIAL (30MG/ML) IVP ONE (01:30)
[2022-12-09] MEDS ORDERED: METOCLOPRAMIDE 10 MG/2 ML VIAL IVP ONE (01:30)
[2022-12-09] MEDS ORDERED: 0.9%NACL 1000ML 1,000 ML IV ONE (01:30)
[2022-12-09] MEDS ORDERED: FAMOTIDINE 20MG VIAL IV ONE (01:30)
[2022-12-09] MEDS ORDERED: KETOROLAC 60 MG VIAL (30MG/ML) IM ONE (01:51)
[2022-12-09 01:54] LABS: BASOPHILS % (AUTO) 0.6 % (0.0-5.0); EOSINOPHILS % (AUTO) 2.9 % (0.0-8.0); HEMATOCRIT 38.2 % (36-48); IMMATURE GRANULOCYTE ABSOLUTE 0.06 K/uL (0-1); LYMPHOCYTES # (AUTO) 2.5 K/uL (1.0-4.8); LYMPHOCYTES % (AUTO) 14.6 % (21.0-51.0); MEAN CORPUSCULAR HEMOGLOBIN 28.6 pg (27.0-33.0); MEAN CORPUSCULAR HGB CONC 32.5 g/dL (32.0-36.0); MEAN CORPUSCULAR VOLUME 88.2 fL (79-99); MONOCYTES # (AUTO) 1.2 K/uL (0.1-1.0); NEUTROPHILS # (AUTO) 12.9 K/uL (1.8-7.7); NEUTROPHILS % (AUTO) 74.6 % (40.0-77.0); PLATELET COUNT (AUTO) 254 K/uL (130-400); RED BLOOD CELL COUNT(AUTO) 4.33 MIL/uL (4.00-5.50); RED CELL DISTRIBUTION WIDTH 12.8 % (11.0-15.5); WHITE BLOOD COUNT (AUTO) 17.4 K/uL (4.8-10.8)
[2022-12-09 02:01] LABS: CREATININE 1.2 mg/dL (0.5-1.5); POTASSIUM 4.6 mmol/L (3.5-5.1)
[2022-12-09 02:03] LABS: APPEARANCE,URINE CLEAR (CLEAR); BILIRUBIN,URINE NEGATIVE (NEGATIVE); COLOR,URINE YELLOW (YELLOW); GLUCOSE, URINE (UA) NEGATIVE (NEGATIVE); KETONES,URINE NEGATIVE (NEGATIVE); LEUKOCYTE ESTERASE ,URINE TRACE Leu/uL (NEGATIVE); NITRATE,URINE NEGATIVE (NEGATIVE); OCCULT BLOOD,URINE NEGATIVE (NEGATIVE); PH,URINE 5.5 (5.0-8.0); PROTEIN,URINE NEGATIVE (NEGATIVE)
[2022-12-09 02:14] LABS: COVID19 (SARS ANTIGEN RAPID) PRESUMPTIVE NEGATIVE (NEGATIVE); INFLUENZA TYPE A Negative For Type A (NEGATIVE); INFLUENZA TYPE B Negative For Type B (NEGATIVE)
[2022-12-09 02:18] LABS: BACTERIA,URINE None Seen /HPF (None Seen); MUCUS,URINE Rare LPF (None Seen); RBC,URINE 0-1 /HPF (0-1); SQUAMOUS EPITHELIAL CELL,UR Rare /HPF (0-2); WBC,URINE 0-1 /HPF (0-1)
[2022-12-09 03:15] VITALS: BP 135/58; PULSE 70; RESP 16; O2SAT 97
[2022-12-09] MEDS ORDERED: GUAI600T50 PO (03:21)
[2022-12-09] MEDS ORDERED: ALBUHFA IH (03:21)
[2022-12-09] MEDS ORDERED: AUD IH (03:21)
[2022-12-09] MEDS ORDERED: METO-296 PO (03:21)
== END 2022-12-09 03:31 | disposition home or self-care (01) ==
LOC: EDH 00:39
DX: G44.209 Tension-type headache, unspecified, not intractable (principal); J20.8 Acute bronchitis due to other specified organisms; J45.909 Unspecified asthma, uncomplicated; I25.10 Atherosclerotic heart disease of native coronary artery without angina pectoris; E11.9 Type 2 diabetes mellitus without complications; I10 Essential (primary) hypertension; E78.00 Pure hypercholesterolemia, unspecified; Z79.51 Long term (current) use of inhaled steroids; Z79.82 Long term (current) use of aspirin; Z79.84 Long term (current) use of oral hypoglycemic drugs; Z79.899 Other long term (current) drug therapy; Z90.49 Acquired absence of other specified parts of digestive tract; Z95.1 Presence of aortocoronary bypass graft; Z79.1 Long term (current) use of non-steroidal anti-inflammatories (NSAID); Z20.822 Contact with and (suspected) exposure to COVID-19
CPT/HCPCS: 99284; 96374; 71046; 96375; 96361; 87426; 80048; 85025; 87804 ×2; 81001; 36415; J7030; J1885; J2765; S0028; J3490

== ENCOUNTER 2023-06-19 19:01 | Emergency (ER) | payer MEDICAID ==
[~2023-06-19] VITALS: Ht 157.5 cm; Wt 101.6 kg
[~2023-06-19 19:01] MED LIST changes: +ALBUHFA IH; +AUD IH; +GUAI600T50 PO; +METO-296 PO
[2023-06-19 21:02] LABS: ADD UA MICROSCOPIC YES; APPEARANCE,URINE CLOUDY (CLEAR); BILIRUBIN,URINE NEGATIVE (NEGATIVE); COLOR,URINE YELLOW (YELLOW); GLUCOSE, URINE (UA) NEGATIVE (NEGATIVE); KETONES,URINE NEGATIVE (NEGATIVE); LEUKOCYTE ESTERASE ,URINE 250 Leu/uL (NEGATIVE); NITRATE,URINE NEGATIVE (NEGATIVE); OCCULT BLOOD,URINE NEGATIVE (NEGATIVE); PROTEIN,URINE 20 mg/dL (NEGATIVE); UROBILINOGEN,URINE 0.2 mg/dL (0.2-1.0)
[2023-06-19 21:11] LABS: RAPID GROUP A STREP negative (NEGATIVE)
[2023-06-19 21:12] LABS: SARS-CoV-2, RNA, NAAT NEGATIVE SARS CoV-2 (NEGATIVE)
[2023-06-19 21:21] LABS: INFLUENZA TYPE A Negative For Type A (NEGATIVE); INFLUENZA TYPE B Negative For Type B (NEGATIVE)
[2023-06-19 21:27] LABS: BACTERIA,URINE FEW /HPF (None Seen); MUCUS,URINE RARE LPF (None Seen); SQUAMOUS EPITHELIAL CELL,UR MOD /HPF (0-2); WBC,URINE 26-50 /HPF (0-1)
[2023-06-19 21:52] LABS: BASOPHILS # (AUTO) 0.09 K/uL (0.00-0.20); BASOPHILS % (AUTO) 0.9 % (0.0-5.0); EOSINOPHILS # (AUTO) 0.49 K/uL (0.00-0.70); EOSINOPHILS % (AUTO) 4.7 % (0.0-8.0); HEMATOCRIT 33.6 % (36-48); IMMATURE GRANULOCYTE ABSOLUTE 0.03 K/uL (0-1); LYMPHOCYTES # (AUTO) 2.4 K/uL (1.0-4.8); LYMPHOCYTES % (AUTO) 23.3 % (21.0-51.0); MEAN CORPUSCULAR HEMOGLOBIN 28.4 pg (27.0-33.0); MEAN CORPUSCULAR HGB CONC 32.4 g/dL (32.0-36.0); MEAN CORPUSCULAR VOLUME 87.5 fL (79-99); MONOCYTES # (AUTO) 1.1 K/uL (0.1-1.0); MONOCYTES % (AUTO) 10.5 % (3.0-13.0); NEUTROPHILS # (AUTO) 6.2 K/uL (1.8-7.7); NEUTROPHILS % (AUTO) 60.3 % (40.0-77.0); PLATELET COUNT (AUTO) 156 K/uL (130-400); RED BLOOD CELL COUNT(AUTO) 3.84 MIL/uL (4.00-5.50); RED CELL DISTRIBUTION WIDTH 13.4 % (11.0-15.5); WHITE BLOOD COUNT (AUTO) 10.3 K/uL (4.8-10.8)
[2023-06-19 22:01] LABS: CREATININE 1.1 mg/dL (0.5-1.0); POTASSIUM 3.5 mmol/L (3.5-5.1)
[2023-06-19 22:05] LABS: ALBUMIN 3.6 g/dL (3.5-5.0); BILIRUBIN,TOTAL 0.7 mg/dL (0.2-1.0); TOTAL PROTEIN, SERUM 7.3 g/dL (6.0-8.3)
[2023-06-19] MEDS ORDERED: BENZ-39 PO (22:51)
[2023-06-19] MEDS ORDERED: CEPH500T PO (22:51)
[2023-06-19] MEDS: CEFTRIAXONE 1G VIAL IM ONE (22:57)
[2023-06-19] MEDS: BENZONATATE 100 MG CAPSULE PO ONE (22:57)
[2023-06-19] MEDS: LIDOCAINE HCL 1% 20 ML VIAL ONE (23:01)
[2023-06-19 23:25] VITALS: BP 147/62; PULSE 70; RESP 18; O2SAT 100
== END 2023-06-19 23:25 | disposition home or self-care (01) ==
LOC: EDH 19:01
DX: J20.8 Acute bronchitis due to other specified organisms (principal); E11.65 Type 2 diabetes mellitus with hyperglycemia; I10 Essential (primary) hypertension; E78.00 Pure hypercholesterolemia, unspecified; Z20.822 Contact with and (suspected) exposure to COVID-19; Z79.82 Long term (current) use of aspirin; Z79.84 Long term (current) use of oral hypoglycemic drugs; Z79.899 Other long term (current) drug therapy; Z98.890 Other specified postprocedural states; Z88.8 Allergy status to other drugs, medicaments and biological substances
CPT/HCPCS: 99284; 71045; 87635; 87880; 80053; 85025; 87077; 87088; 87186; 87804 ×2; 81001; 36415; 96372; J0696

== ENCOUNTER 2023-06-22 21:38 | Inpatient (IN) | payer MEDICAID ==
[~2023-06-22] VITALS: Ht 157.5 cm; Wt 96.5 kg
[~2023-06-22 21:38] MED LIST changes: +BENZ-39 PO; +CEPH500T PO
[2023-06-22] MEDS: 0.9%NACL 1000ML 1,503 ML IV ONE (22:10)
[2023-06-22] MEDS: SOLU-MEDROL 125MG VIAL IVP ONE ×2 (22:10)
[2023-06-22] MEDS: AZITHROMYCIN 250 MG TABLET PO ONE (22:10)
[2023-06-22] MEDS: CEFTRIAXONE 1G VIAL IVPB ONE (22:10)
[2023-06-22] MEDS: IPRATROPIUM/ALBUTEROL SULFATE 3 ML SOLUTION IH ONE ×3 (22:13→22:14)
[2023-06-22 22:14] VITALS: PULSE 62; RESP 16; O2SAT 98
[2023-06-22] MEDS: IPRATROPIUM/ALBUTEROL SULFATE 3 ML SOLUTION IH PRN (22:14)
[2023-06-22 22:28] LABS: BASOPHILS # (AUTO) 0.08 K/uL (0.00-0.20); BASOPHILS % (AUTO) 0.7 % (0.0-5.0); EOSINOPHILS # (AUTO) 0.48 K/uL (0.00-0.70); HEMATOCRIT 35.7 % (36-48); IMMATURE GRANULOCYTE ABSOLUTE 0.03 K/uL (0-1); LYMPHOCYTES # (AUTO) 3.1 K/uL (1.0-4.8); LYMPHOCYTES % (AUTO) 25.3 % (21.0-51.0); MEAN CORPUSCULAR HEMOGLOBIN 28.9 pg (27.0-33.0); MEAN CORPUSCULAR HGB CONC 32.8 g/dL (32.0-36.0); MEAN CORPUSCULAR VOLUME 88.1 fL (79-99); MONOCYTES # (AUTO) 0.9 K/uL (0.1-1.0); MONOCYTES % (AUTO) 7.2 % (3.0-13.0); NEUTROPHILS # (AUTO) 7.6 K/uL (1.8-7.7); NEUTROPHILS % (AUTO) 62.6 % (40.0-77.0); PLATELET COUNT (AUTO) 176 K/uL (130-400); RED BLOOD CELL COUNT(AUTO) 4.05 MIL/uL (4.00-5.50); RED CELL DISTRIBUTION WIDTH 13.2 % (11.0-15.5); WHITE BLOOD COUNT (AUTO) 12.1 K/uL (4.8-10.8)
[2023-06-22 22:36] LABS: POTASSIUM 3.7 mmol/L (3.5-5.1); RAPID GROUP A STREP negative (NEGATIVE)
[2023-06-22 22:41] LABS: ALBUMIN 3.5 g/dL (3.5-5.0); BILIRUBIN,TOTAL 0.8 mg/dL (0.2-1.0); INR <= 0.93 (0.85-1.15); PROTHROMBIN TIME 10.8 SEC (9.6-11.6); TOTAL PROTEIN, SERUM 7.4 g/dL (6.0-8.3)
[2023-06-22 22:42] LABS: PARTIAL THROMBOPLASTIN TIME 26.2 SEC (26.3-35.5); SARS-CoV-2, RNA, NAAT NEGATIVE SARS CoV-2 (NEGATIVE)
[2023-06-22 23:01] LABS: ADD UA MICROSCOPIC YES; APPEARANCE,URINE CLEAR (CLEAR); BILIRUBIN,URINE NEGATIVE (NEGATIVE); COLOR,URINE LIGHT-YELLOW (YELLOW); GLUCOSE, URINE (UA) NEGATIVE (NEGATIVE); KETONES,URINE NEGATIVE (NEGATIVE); LEUKOCYTE ESTERASE ,URINE NEGATIVE Leu/uL (NEGATIVE); NITRATE,URINE NEGATIVE (NEGATIVE); OCCULT BLOOD,URINE NEGATIVE (NEGATIVE); PROTEIN,URINE 10 mg/dL (NEGATIVE); UROBILINOGEN,URINE 0.2 mg/dL (0.2-1.0)
[2023-06-22 23:03] LABS: MUCUS,URINE RARE LPF (None Seen); RBC,URINE 0-1 /HPF (0-1); SQUAMOUS EPITHELIAL CELL,UR FEW /HPF (0-2)
[2023-06-22 23:10] LABS: INFLUENZA TYPE A Negative For Type A (NEGATIVE)
[2023-06-22 23:12] LABS: INFLUENZA TYPE B Positive For Type B (NEGATIVE)
[2023-06-22] MEDS: ASPIRIN 81MG CHEW TAB PO ONE (23:15)
[2023-06-22] MEDS: FUROSEMIDE 40MG VIAL IV ONE (23:15)
[2023-06-22] MEDS: HEPARIN 5,000 UNIT VIAL IV ONE (23:15)
[2023-06-22] MEDS: HEPARIN 25,000 UNITS/250ML D5W 250 ML IV SCH (23:42)
[2023-06-23] VITALS (14 sets, daily range): BP systolic 118–145; BP diastolic 46–64; PULSE 64–85; RESP 16–22; O2SAT 93–98
[2023-06-23] MEDS ORDERED: HYDRALAZINE 20MG/ML VIAL IV PRN
[2023-06-23] MEDS ORDERED: POTASSIUM CHLORIDE 20MEQ/100ML 100 ML IV PRN
[2023-06-23] MEDS ORDERED: DEXTROSE 50%-WATER 50 ML DISP.SYRIN IV PRN
[2023-06-23] MEDS ORDERED: GLUCAGON 1MG KIT 1 MG ML IM PRN
[2023-06-23] MEDS ORDERED: KCL 20 MEQ ERTAB PO PRN
[2023-06-23] MEDS ORDERED: ONDANSETRON 4MG INJ IV PRN
[2023-06-23] MEDS ORDERED: NITROGLYCERIN 0.4 MG SL TAB SL PRN
[2023-06-23] MEDS: LEVOFLOXACIN 500 MG/D5W 100 ML 100 ML IV SCH (00:32)
[2023-06-23] MEDS: POTASSIUM CHLORIDE 10% ELIXIR 20 MEQ/15 ML UDCUP PO PRN (00:51)
[2023-06-23] MEDS: ALBUTEROL 0.083% 2.5 MG/3 ML INH IH SCH (01:13)
[2023-06-23 05:32] LABS: INR 1.1 (0.85-1.15); PROTHROMBIN TIME 11.6 SEC (9.6-11.6)
[2023-06-23 07:09] LABS: BASOPHILS # (AUTO) 0.05 K/uL (0.00-0.20); BASOPHILS % (AUTO) 0.4 % (0.0-5.0); EOSINOPHILS # (AUTO) 0.02 K/uL (0.00-0.70); EOSINOPHILS % (AUTO) 0.2 % (0.0-8.0); HEMATOCRIT 35.3 % (36-48); IMMATURE GRANULOCYTE ABSOLUTE 0.04 K/uL (0-1); LYMPHOCYTES # (AUTO) 1.1 K/uL (1.0-4.8); LYMPHOCYTES % (AUTO) 8.8 % (21.0-51.0); MEAN CORPUSCULAR HEMOGLOBIN 28.3 pg (27.0-33.0); MEAN CORPUSCULAR HGB CONC 32.9 g/dL (32.0-36.0); MEAN CORPUSCULAR VOLUME 86.1 fL (79-99); MONOCYTES # (AUTO) 0.1 K/uL (0.1-1.0); MONOCYTES % (AUTO) 0.7 % (3.0-13.0); NEUTROPHILS % (AUTO) 89.6 % (40.0-77.0); PLATELET COUNT (AUTO) 264 K/uL (130-400); RED CELL DISTRIBUTION WIDTH 13.2 % (11.0-15.5); WHITE BLOOD COUNT (AUTO) 12.3 K/uL (4.8-10.8)
[2023-06-23 07:37] LABS: ALBUMIN 3.6 g/dL (3.5-5.0); BILIRUBIN,TOTAL 0.9 mg/dL (0.2-1.0); CREATININE 1.3 mg/dL (0.5-1.0); MAGNESIUM 1.5 mg/dL (1.80-2.40); POTASSIUM 4.1 mmol/L (3.5-5.1); TOTAL PROTEIN, SERUM 7.8 g/dL (6.0-8.3)
[2023-06-23] MEDS: INSULIN HUMULIN R 100 UNIT/ML 3ML SQ SCH (07:47)
[2023-06-23] MEDS: SOLU-MEDROL 40MG VIAL IVP SCH (08:31)
[2023-06-23] MEDS: FUROSEMIDE 20MG VIAL IV SCH (08:31)
[2023-06-23] MEDS: OSELTAMIVIR PHOSPHATE 75 MG CAP PO SCH (08:31)
[2023-06-23] MEDS: FAMOTIDINE 20MG TAB PO SCH (08:31)
[2023-06-23] MEDS: ASPIRIN 81 MG EC TAB PO SCH (08:31)
[2023-06-23] MEDS: MAGNESIUM 2GM PREMIX 50ML 50 ML IV PRN (08:32)
[2023-06-23 08:44] LABS: B-TYPE NATRIURETIC PEPTIDE 150 pg/mL (0-100)
[2023-06-24] VITALS (13 sets, daily range): BP systolic 114–146; BP diastolic 48–74; PULSE 65–87; RESP 18–22; O2SAT 91–99
[2023-06-24 04:37] LABS: BASOPHILS # (AUTO) 0.03 K/uL (0.00-0.20); BASOPHILS % (AUTO) 0.1 % (0.0-5.0); EOSINOPHILS # (AUTO) 0.01 K/uL (0.00-0.70); HEMATOCRIT 33.5 % (36-48); IMMATURE GRANULOCYTE ABSOLUTE 0.09 K/uL (0-1); LYMPHOCYTES # (AUTO) 1.1 K/uL (1.0-4.8); LYMPHOCYTES % (AUTO) 4.9 % (21.0-51.0); MEAN CORPUSCULAR HEMOGLOBIN 28.5 pg (27.0-33.0); MEAN CORPUSCULAR HGB CONC 32.2 g/dL (32.0-36.0); MEAN CORPUSCULAR VOLUME 88.4 fL (79-99); MONOCYTES # (AUTO) 0.6 K/uL (0.1-1.0); MONOCYTES % (AUTO) 2.8 % (3.0-13.0); NEUTROPHILS # (AUTO) 20.6 K/uL (1.8-7.7); NEUTROPHILS % (AUTO) 91.8 % (40.0-77.0); PLATELET COUNT (AUTO) 241 K/uL (130-400); RED BLOOD CELL COUNT(AUTO) 3.79 MIL/uL (4.00-5.50); RED CELL DISTRIBUTION WIDTH 13.3 % (11.0-15.5); WHITE BLOOD COUNT (AUTO) 22.4 K/uL (4.8-10.8)
[2023-06-24 04:47] LABS: ALBUMIN 3.4 g/dL (3.5-5.0); BILIRUBIN,TOTAL 0.5 mg/dL (0.2-1.0); CREATININE 1.3 mg/dL (0.5-1.0); MAGNESIUM 2.1 mg/dL (1.80-2.40); POTASSIUM 4.9 mmol/L (3.5-5.1); TOTAL PROTEIN, SERUM 7.3 g/dL (6.0-8.3)
[2023-06-24] MEDS: FUROSEMIDE 20 MG TABLET PO SCH (08:54)
[2023-06-24] MEDS: CARVEDILOL 3.125 MG TABLET PO SCH (08:54)
[2023-06-24] MEDS: ALBUTEROL 0.083% 2.5 MG/3 ML INH IH ONE (18:25)
[2023-06-24] MEDS: ALBUTEROL 0.083% 2.5 MG/3 ML INH IH SCH (23:07)
[2023-06-25] VITALS (13 sets, daily range): BP systolic 118–143; BP diastolic 49–66; PULSE 56–66; RESP 18–19; O2SAT 98–99
[2023-06-25 04:21] LABS: BASOPHILS # (AUTO) 0.04 K/uL (0.00-0.20); BASOPHILS % (AUTO) 0.2 % (0.0-5.0); EOSINOPHILS # (AUTO) 0.01 K/uL (0.00-0.70); HEMATOCRIT 34.3 % (36-48); IMMATURE GRANULOCYTE ABSOLUTE 0.12 K/uL (0-1); LYMPHOCYTES # (AUTO) 2.9 K/uL (1.0-4.8); LYMPHOCYTES % (AUTO) 13.2 % (21.0-51.0); MEAN CORPUSCULAR HEMOGLOBIN 28.6 pg (27.0-33.0); MEAN CORPUSCULAR HGB CONC 32.1 g/dL (32.0-36.0); MEAN CORPUSCULAR VOLUME 89.3 fL (79-99); MONOCYTES # (AUTO) 1.1 K/uL (0.1-1.0); MONOCYTES % (AUTO) 4.9 % (3.0-13.0); NEUTROPHILS # (AUTO) 17.7 K/uL (1.8-7.7); NEUTROPHILS % (AUTO) 81.2 % (40.0-77.0); PLATELET COUNT (AUTO) 273 K/uL (130-400); RED BLOOD CELL COUNT(AUTO) 3.84 MIL/uL (4.00-5.50); RED CELL DISTRIBUTION WIDTH 13.2 % (11.0-15.5); WHITE BLOOD COUNT (AUTO) 21.9 K/uL (4.8-10.8)
[2023-06-25 04:48] LABS: ALBUMIN 3.2 g/dL (3.5-5.0); BILIRUBIN,TOTAL 0.6 mg/dL (0.2-1.0); CREATININE 1.1 mg/dL (0.5-1.0); MAGNESIUM 2.1 mg/dL (1.80-2.40); POTASSIUM 4.9 mmol/L (3.5-5.1); TOTAL PROTEIN, SERUM 7.1 g/dL (6.0-8.3)
[2023-06-25] MEDS: FAMOTIDINE 20MG TAB PO SCH (08:59)
[2023-06-25] MEDS: PREDNISONE 20 MG TABLET PO ONE (09:00)
[2023-06-25] MEDS: GUAIFENESIN-DM 200/20 MG 10 ML PO PRN (19:59)
[2023-06-25] MEDS: ATORVASTATIN 40 MG TABLET PO SCH (19:59)
[2023-06-26] VITALS (15 sets, daily range): BP systolic 137–158; BP diastolic 48–74; PULSE 56–67; RESP 18–19; O2SAT 94–99
[2023-06-26 04:15] LABS: BASOPHILS # (AUTO) 0.04 K/uL (0.00-0.20); BASOPHILS % (AUTO) 0.2 % (0.0-5.0); EOSINOPHILS # (AUTO) 0.23 K/uL (0.00-0.70); EOSINOPHILS % (AUTO) 1.1 % (0.0-8.0); HEMATOCRIT 36.7 % (36-48); IMMATURE GRANULOCYTE ABSOLUTE 0.11 K/uL (0-1); LYMPHOCYTES # (AUTO) 5.4 K/uL (1.0-4.8); LYMPHOCYTES % (AUTO) 25.9 % (21.0-51.0); MEAN CORPUSCULAR HEMOGLOBIN 28.6 pg (27.0-33.0); MEAN CORPUSCULAR HGB CONC 32.7 g/dL (32.0-36.0); MEAN CORPUSCULAR VOLUME 87.6 fL (79-99); MONOCYTES # (AUTO) 1.5 K/uL (0.1-1.0); MONOCYTES % (AUTO) 7.4 % (3.0-13.0); NEUTROPHILS # (AUTO) 13.5 K/uL (1.8-7.7); NEUTROPHILS % (AUTO) 64.9 % (40.0-77.0); PLATELET COUNT (AUTO) 298 K/uL (130-400); RED BLOOD CELL COUNT(AUTO) 4.19 MIL/uL (4.00-5.50); RED CELL DISTRIBUTION WIDTH 13.2 % (11.0-15.5); WHITE BLOOD COUNT (AUTO) 20.8 K/uL (4.8-10.8)
[2023-06-26 04:27] LABS: CREATININE 1.1 mg/dL (0.5-1.0); POTASSIUM 4.1 mmol/L (3.5-5.1)
[2023-06-26] MEDS: SOLU-MEDROL 40MG VIAL IVP SCH (11:58)
[2023-06-26] MEDS: INSULIN HUMULIN R 100 UNIT/ML 3ML SQ SCH (12:02)
[2023-06-26] MEDS: METFORMIN HCL 500 MG TABLET PO SCH (19:54)
[2023-06-26] MEDS: INSULIN HUMULIN R 100 UNIT/ML 3ML SQ ONE (19:55)
[2023-06-26] MEDS: INSULIN GLARGINE 100 UNITS/ML 10 ML VIAL SQ ONE (19:58)
[2023-06-26] MEDS ORDERED: INSULIN GLARGINE 100 UNITS/ML 10 ML VIAL SQ ONE (20:00)
[2023-06-27 04:02] VITALS: BP 135/63; PULSE 62; RESP 18
[2023-06-27 04:48] LABS: BASOPHILS # (AUTO) 0.03 K/uL (0.00-0.20); BASOPHILS % (AUTO) 0.2 % (0.0-5.0); EOSINOPHILS # (AUTO) 0.01 K/uL (0.00-0.70); EOSINOPHILS % (AUTO) 0.1 % (0.0-8.0); HEMATOCRIT 39.8 % (36-48); IMMATURE GRANULOCYTE ABSOLUTE 0.12 K/uL (0-1); LYMPHOCYTES # (AUTO) 1.5 K/uL (1.0-4.8); LYMPHOCYTES % (AUTO) 7.5 % (21.0-51.0); MEAN CORPUSCULAR HEMOGLOBIN 27.7 pg (27.0-33.0); MEAN CORPUSCULAR HGB CONC 32.4 g/dL (32.0-36.0); MEAN CORPUSCULAR VOLUME 85.4 fL (79-99); MONOCYTES # (AUTO) 0.4 K/uL (0.1-1.0); NEUTROPHILS # (AUTO) 17.4 K/uL (1.8-7.7); NEUTROPHILS % (AUTO) 89.6 % (40.0-77.0); PLATELET COUNT (AUTO) 324 K/uL (130-400); RED BLOOD CELL COUNT(AUTO) 4.66 MIL/uL (4.00-5.50); RED CELL DISTRIBUTION WIDTH 12.9 % (11.0-15.5); WHITE BLOOD COUNT (AUTO) 19.4 K/uL (4.8-10.8)
[2023-06-27 05:03] LABS: CREATININE 1.1 mg/dL (0.5-1.0); POTASSIUM 4.8 mmol/L (3.5-5.1)
[2023-06-27 06:27] VITALS: PULSE 63; RESP 18; O2SAT 92
[2023-06-27] MEDS ORDERED: INSULIN HUMULIN R 100 UNIT/ML 3ML SQ SCH (07:30)
[2023-06-27 07:58] VITALS: BP 132/56; PULSE 67; RESP 18
[2023-06-27] MEDS: GLIMEPIRIDE 2 MG TABLET PO SCH (08:17)
[2023-06-27 08:18] VITALS: BP 132/56
[2023-06-27] MEDS: INSULIN GLARGINE 100 UNITS/ML 10 ML VIAL SQ SCH (08:31)
[2023-06-27] MEDS ORDERED: ATORVASTATIN 40 MG TABLET PO SCH (09:00)
[2023-06-27] MEDS ORDERED: LEVO750T68 PO (09:22)
[2023-06-27] MEDS ORDERED: FURO20TA6 PO (09:22)
[2023-06-27] MEDS ORDERED: PRED20TA3 PO (09:22)
[2023-06-27] MEDS ORDERED: INSLAN SQ (09:22)
[2023-06-27 09:30] VITALS: O2SAT 93
[2023-06-27 11:19] VITALS: PULSE 66; RESP 18
== END 2023-06-27 11:45 | disposition home or self-care (01) | DRG 720 ==
LOC: EDH 21:38 → EDHIP 21:39 → 4DH 06-23 04:24
PROVIDERS: ADMIT Internal Medicine; ATTEND Internal Medicine
DX: A41.9 Sepsis, unspecified organism (principal); J96.01 Acute respiratory failure with hypoxia; I50.31 Acute diastolic (congestive) heart failure; J10.00 Influenza due to other identified influenza virus with unspecified type of pneumonia; I21.A1 Myocardial infarction type 2; I11.0 Hypertensive heart disease with heart failure; J18.9 Pneumonia, unspecified organism; Z20.822 Contact with and (suspected) exposure to COVID-19; J10.89 Influenza due to other identified influenza virus with other manifestations; J44.0 Chronic obstructive pulmonary disease with (acute) lower respiratory infection; E66.01 Morbid (severe) obesity due to excess calories; I25.10 Atherosclerotic heart disease of native coronary artery without angina pectoris; E11.65 Type 2 diabetes mellitus with hyperglycemia; E78.00 Pure hypercholesterolemia, unspecified; Z95.1 Presence of aortocoronary bypass graft; Z83.3 Family history of diabetes mellitus; Z82.49 Family history of ischemic heart disease and other diseases of the circulatory system; Z88.8 Allergy status to other drugs, medicaments and biological substances; Z90.49 Acquired absence of other specified parts of digestive tract; Z87.891 Personal history of nicotine dependence; Z82.5 Family history of asthma and other chronic lower respiratory diseases; Z68.38 Body mass index [BMI] 38.0-38.9, adult; Z79.82 Long term (current) use of aspirin
CPT/HCPCS: 36415; 71045; 71250; 80048; 80053; 81001; 82306; 82550; 82948; 83036; 83605; 83735; 83880; 84484; 85025; 85378; 85610; 85730; 87040; 87088; 87635; 87804; 87880; 93005; 93306; 94640; 94664; 96365; 96375; G0378; J0696; J1644; J1815; J1940; J1956; J2919; J2920; J3475; J7030

== ENCOUNTER 2024-02-22 15:11 | Emergency (ER) | payer MEDICAID ==
[~2024-02-22] VITALS: Ht 157.5 cm; Wt 97.1 kg
[~2024-02-22 15:11] MED LIST changes: -CEPH250T PO; -CEPH500T PO; +FURO20TA6 PO; -FURO80TA3 PO; +INSLAN SQ; +LEVO750T68 PO; +ONDA-243 PO; -ONDA4TAB10 PO; +PRED20TA3 PO
[2024-02-22] MEDS: ibuPROFEN 600 MG TABLET PO ONE (15:57)
[2024-02-22] MEDS: teTANUS/diphthERIA TOXOID [ADULT] 0.5 ML VIAL IM ONE (15:58)
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
[2024-02-22 16:31] LABS: BASOPHILS # (AUTO) 0.09 K/uL (0.00-0.20); BASOPHILS % (AUTO) 0.5 % (0.0-5.0); EOSINOPHILS # (AUTO) 0.45 K/uL (0.00-0.70); EOSINOPHILS % (AUTO) 2.4 % (0.0-8.0); HEMATOCRIT 38.6 % (36-48); IMMATURE GRANULOCYTE ABSOLUTE 0.08 K/uL (0-1); LYMPHOCYTES # (AUTO) 2.5 K/uL (1.0-4.8); LYMPHOCYTES % (AUTO) 12.9 % (21.0-51.0); MEAN CORPUSCULAR HEMOGLOBIN 28.7 pg (27.0-33.0); MEAN CORPUSCULAR HGB CONC 33.4 g/dL (32.0-36.0); MONOCYTES % (AUTO) 5.2 % (3.0-13.0); NEUTROPHILS % (AUTO) 78.6 % (40.0-77.0); PLATELET COUNT (AUTO) 267 K/uL (130-400); RED BLOOD CELL COUNT(AUTO) 4.49 MIL/uL (4.00-5.50); RED CELL DISTRIBUTION WIDTH 12.7 % (11.0-15.5)
[2024-02-22 16:41] LABS: CREATININE 1.3 mg/dL (0.5-1.0); POTASSIUM 4.2 mmol/L (3.5-5.1)
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
--- NOTE | 2024-02-22 17:52 | NUR ---
RT KNEE IMMOBILIZER PLACED AND CRUTCHES GIVEN PER ORDER; VERBAL AND WRITTIN INSTRUCTIONS PROVIDED FOR EACH.
[2024-02-22 17:54] VITALS: BP 144/49; PULSE 70; RESP 18; TEMP 97.9; O2SAT 97
[2024-02-22] MEDS ORDERED: TRAM50TA4 PO (18:12)
[2024-02-22] MEDS: morPHINE 4 MG SYG IM ONE (18:16)
[2024-02-22] MEDS: morPHINE 4 MG SYG ONE (18:16)
== END 2024-02-22 18:35 | disposition home or self-care (01) ==
LOC: EDH 15:11
DX: S83.004A Unspecified dislocation of right patella, initial encounter (principal); S20.211A Contusion of right front wall of thorax, initial encounter; S00.83XA Contusion of other part of head, initial encounter; S00.33XA Contusion of nose, initial encounter; R04.0 Epistaxis; E78.00 Pure hypercholesterolemia, unspecified; I10 Essential (primary) hypertension; Z79.1 Long term (current) use of non-steroidal anti-inflammatories (NSAID); Z79.51 Long term (current) use of inhaled steroids; Z79.52 Long term (current) use of systemic steroids; Z79.82 Long term (current) use of aspirin; Z79.84 Long term (current) use of oral hypoglycemic drugs; Z79.899 Other long term (current) drug therapy; Z95.1 Presence of aortocoronary bypass graft; X95.8XXA Assault by other firearm discharge, initial encounter; Y93.89 Activity, other specified; Y92.89 Other specified places as the place of occurrence of the external cause; Y99.8 Other external cause status
CPT/HCPCS: 99285; 70450; 29505; 80048; 85025; 36415; 90714; 73564; 71250; 70486; 74176; 90471; 96372; J2270